=== PATIENT | female | born 1935 | race Caucasian/White ===

== ENCOUNTER 2016-11-18 08:06 | Observation (INO) ==
--- NOTE | 2016-11-18 08:11 | Emergency Department Note ---
Disposition Clinical Impression: ACS (acute coronary syndrome), Acute pain of left shoulder Disposition: Admitted As Inpatient Condition: Fair General Adult HPI - General Stated complaint: L arm pain Time Seen by Provider: 11/18/16 08:10 - Related Data Home Medications Medication Instructions Recorded Confirmed Aspirin 81 mg PO DAILY 09/26/16 11/18/16 Atorvastatin Calcium 80 mg PO DAILY 09/26/16 11/18/16 Furosemide [Lasix] 40 mg PO DAILY 09/26/16 11/18/16 GlipiZIDE [Glipizide ER] 10 mg PO BID 09/26/16 11/18/16 Lisinopril [Zestril] 20 mg PO DAILY 09/26/16 11/18/16 Metoprolol [Lopressor] 50 mg PO BID 09/26/16 11/18/16 Nitroglycerin [Nitrostat] 0.4 mg SL AD PRN 09/26/16 11/18/16 Potassium Chloride [K-Tab ER] 20 meq PO DAILY 09/26/16 11/18/16 Ticagrelor [Brilinta] 90 mg PO BID 09/26/16 11/18/16 Lactobacillus Combination No.8 1 cap PO DAILY 11/16/16 11/18/16 [Adult Probiotic] Multivitamin [Multivitamins] 1 tab PO DAILY 11/16/16 11/18/16 Metformin HCl [Glucophage] 1,000 mg PO BID 11/18/16 11/18/16 Nitroglycerin 0.2 mg TD DAILY PRN 11/18/16 11/18/16 Ranolazine [Ranexa] 500 mg PO BID 11/18/16 11/18/16 Allergies Allergy/AdvReac Type Severity Reaction Status Date / Time No Known Allergies Allergy Verified 10/12/16 09:57 Past Medical History - Past Medical History Medical history: Reports: aortic aneurysm, coronary artery disease, diabetes, hyperlipidemia, hypertension, myocardial infarction, osteoporosis, other Surgical history: Reports: angioplasty/stent Psychiatric history: Reports: no psych history BUSINESS OBJECTS ARCHITECT history: Reports: no BUSINESS OBJECTS ARCHITECT history - Social History Smoking Status: Never smoker Smokeless Tobacco Status: No Alcohol use: Reports: rarely Drug use: Reports: none Course Vital Signs Temperature 98.7 F 11/18/16 08:09 Pulse Rate 88 11/18/16 08:09 Respiratory Rate 16 11/18/16 08:09 Blood Pressure 143/84 11/18/16 08:09 O2 Sat by Pulse Oximetry 100 11/18/16 08:09 Temperature 98.0 F 11/20/16 07:10 Pulse Rate 87 11/20/16 07:10 Respiratory Rate 16 11/20/16 07:10 Blood Pressure 144/82 11/20/16 07:10 O2 Sat by Pulse Oximetry 95 11/20/16 07:10 Oxygen Delivery Oxygen Delivery Room Air Medical Decision Making - Lab Data Result diagrams: 11/19/16 01:23 11/19/16 01:23 Lab Results 11/18/16 11/18/16 11/18/16 Range/Units 08:14 08:28 08:28 WBC 8.4 (4.3-11.1) K/mcL RBC 3.44 L (3.82-4.97) M/mcL Hgb 10.8 L (11.5-15.4) g/dL Hct 34.1 L (35.3-44.9) % MCV 99.1 (83.0-100.0) fL MCH 31.4 (28.0-33.3) pg MCHC 31.7 (31.6-35.5) g/dL RDW 14.3 (11.5-14.5) % Plt Count 279 (140-400) K/mcL MPV 9.4 (9.4-12.4) fL Immature Gran % 0.2 (0-4) % Seg Neutrophils % 53.4 % Lymphocytes % 29.7 % Monocytes % 10.5 % Eosinophils % 5.8 % Basophils % 0.4 % Neutrophils # 4.5 (1.6-8.9) K/mcL Lymphocytes # 2.5 (0.6-4.6) K/mcL Monocytes # 0.9 (0.0-1.3) K/mcL Eosinophils # 0.5 (0.0-0.6) K/mcL Basophils # 0.0 (0.0-0.2) K/mcL PT (9.4-12.1) Seconds INR APTT (26.0-36.0) Seconds Sodium 140 (136-145) mEq/L Potassium 3.9 (3.5-4.5) mEq/L Chloride 106 (98-109) mEq/L Carbon Dioxide 29 (19-29) mEq/L BUN 29 H (7-20) mg/dL Creatinine 0.85 (0.57-1.11) mg/dL Est GFR ( Amer) > 60 (> 60) Est GFR (Non-Af Amer) > 60 (> 60) BUN/Creatinine Ratio 34 H (6-26) Glucose 253 H (70-99) mg/dL POC Glucose 237 H (58-89) Calculated Osmolality 304 H (280-300) Calcium 9.6 (8.6-10.8) mg/dL Troponin I (0-0.03) ng/mL 11/18/16 11/18/16 Range/Units 08:28 08:28 WBC (4.3-11.1) K/mcL RBC (3.82-4.97) M/mcL Hgb (11.5-15.4) g/dL Hct (35.3-44.9) % MCV (83.0-100.0) fL MCH (28.0-33.3) pg MCHC (31.6-35.5) g/dL RDW (11.5-14.5) % Plt Count (140-400) K/mcL MPV (9.4-12.4) fL Immature Gran % (0-4) % Seg Neutrophils % % Lymphocytes % % Monocytes % % Eosinophils % % Basophils % % Neutrophils # (1.6-8.9) K/mcL Lymphocytes # (0.6-4.6) K/mcL Monocytes # (0.0-1.3) K/mcL Eosinophils # (0.0-0.6) K/mcL Basophils # (0.0-0.2) K/mcL PT 12.6 H (9.4-12.1) Seconds INR 1.2 APTT 26.8 (26.0-36.0) Seconds Sodium (136-145) mEq/L Potassium (3.5-4.5) mEq/L Chloride (98-109) mEq/L Carbon Dioxide (19-29) mEq/L BUN (7-20) mg/dL Creatinine (0.57-1.11) mg/dL Est GFR ( Amer) (> 60) Est GFR (Non-Af Amer) (> 60) BUN/Creatinine Ratio (6-26) Glucose (70-99) mg/dL POC Glucose (58-89) Calculated Osmolality (280-300) Calcium (8.6-10.8) mg/dL Troponin I 0.19 H* (0-0.03) ng/mL Attestation Statement - Attestation Attestation: I examined this patient and my medical decision-making was reviewed with the Resident Physician. I agree with the documented findings, disposition and treatment plan as described except to the extent set forth below. [id number] time provided Patient presents in the care of her family for atraumatic left shoulder pain. She states she is unable to perform range of motion at her left shoulder due to discomfort. She is uncomfortable appearing on exam. Left shoulder not erythematous, no increased tactile warmth or evidence of acute inflammation 08:22: The patient is unable to perform range of motion of her left shoulder due to pain. I cannot identify any hemiparesis or focal weakness-she is able to make the "OK" sign with her left hand, she is able to make a fist and resist resistance with range of motion at her wrist, she is able to flex and extend at the elbow on a limited basis pain in her left shoulder. She has no leg drift. I suspect her symptoms to be secondary to an acute musculoskeletal right arm involving her left shoulder.
[2016-11-18] MEDS ORDERED: Aspirin 325 MG TABLET PO ONE (08:19)
[2016-11-18] MEDS ORDERED: *HR* Morphine 2 MG/ML SYRINGE IVP ONE (08:23)
[2016-11-18 08:34] LABS: Basophils % 0.4 %; Eosinophils # 0.5 K/mcL (0.0-0.6); Eosinophils % 5.8 %; Hematocrit 34.1 % (35.3-44.9); Hemoglobin 10.8 g/dL (11.5-15.4); Immature Granulocytes % 0.2 % (0-4); Lymphocytes # 2.5 K/mcL (0.6-4.6); Lymphocytes % 29.7 %; Mean Corpuscular HGB Conc 31.7 g/dL (31.6-35.5); Mean Corpuscular Hemoglobin 31.4 pg (28.0-33.3); Mean Corpuscular Volume 99.1 fL (83.0-100.0); Mean Platelet Volume 9.4 fL (9.4-12.4); Monocytes # 0.9 K/mcL (0.0-1.3); Monocytes % 10.5 %; Neutrophils # 4.5 K/mcL (1.6-8.9); Platelet Count 279 K/mcL (140-400); Red Blood Count 3.44 M/mcL (3.82-4.97); Red Cell Distribution Width 14.3 % (11.5-14.5); Segmented Neutrophils % 53.4 %
[2016-11-18 08:39] LABS: INR 1.2; Prothrombin Time 12.6 Seconds (9.4-12.1)
--- NOTE | 2016-11-18 08:40 | Emergency Department Note ---
Disposition Clinical Impression: ACS (acute coronary syndrome), Acute pain of left shoulder Disposition: Admitted As Inpatient Condition: Fair Referrals: NO,PCP [Primary Care Provider] - Time of Disposition: 10:03 General Adult HPI - General Chief complaint: ED Neuro Symptoms/Deficit Stated complaint: L arm pain Time Seen by Provider: 11/18/16 08:10 Source: patient, family Limitations: no limitations Nursing Notes Reviewed: Yes Vital Signs Reviewed: Yes - History of Present Illness HPI Narrative: Patient is a 81-year-old female with a past medical history of CAD, hyperlipidemia, hypertension, [place], aortic aneurysm, presents to the emergency car with complaint of left shoulder and arm pain and unable to move her left arm. The patient states her arm pain started yesterday and she was unable to move it throughout the night. She denies any other symptoms of weakness or numbness or pain anywhere else. When I asked the patient if she is able to move the arm she states that she cannot states the arm is very painful she attempts to move it and gets slight movement and then stops. She denies any fevers, chills, shortness of breath. The patient states she is having mild substernal chest pain as well. She does take an aspirin daily and brilinta. Pain Scale: 10 - Related Data Home Medications Medication Instructions Recorded Confirmed Aspirin 81 mg PO BID 09/26/16 11/16/16 Atorvastatin Calcium 80 mg PO DAILY 09/26/16 11/16/16 Furosemide [Lasix] 40 mg PO DAILY 09/26/16 11/16/16 GlipiZIDE [Glipizide ER] 10 mg PO BID 09/26/16 11/16/16 Lisinopril [Zestril] 20 mg PO DAILY 09/26/16 11/16/16 Metoprolol [Lopressor] 50 mg PO BID 09/26/16 11/16/16 Nitroglycerin [Nitrostat] 0.4 mg SL PRN PRN 09/26/16 11/16/16 Potassium Chloride [K-Tab ER] 20 meq PO DAILY 09/26/16 11/16/16 Ticagrelor [Brilinta] 90 mg PO BID 09/26/16 11/16/16 Lactobacillus Combination No.8 1 tab PO DAILY 11/16/16 11/16/16 [Adult Probiotic] Multivitamin [Multivitamins] 1 each PO DAILY 11/16/16 11/16/16 Allergies Allergy/AdvReac Type Severity Reaction Status Date / Time No Known Allergies Allergy Verified 10/12/16 09:57 All systems ED: reviewed and negative except as stated. Past Medical History - Past Medical History Medical history: Reports: aortic aneurysm, coronary artery disease, diabetes, hyperlipidemia, hypertension, myocardial infarction, osteoporosis, other Surgical history: Reports: angioplasty/stent Psychiatric history: Reports: no psych history QUALITY HEAD history: Reports: no QUALITY HEAD history - Social History Smoking Status: Never smoker Smokeless Tobacco Status: No Alcohol use: Reports: rarely Drug use: Reports: none Physical Exam Patient is a 81-year-old female who is resting in bed, she is not moving her left arm. She is in no acute distress - General Limitations: no limitations General appearance: alert, in no apparent distress - Head Head exam: atraumatic, normocephalic, normal inspection - Eye Eye exam: Present: normal appearance, PERRL, EOMI. Absent: nystagmus - ENT ENT exam: normal exam, normal oropharynx, mucous membranes moist - Neck Neck exam: Present: normal inspection, full ROM, trachea midline. Absent: tenderness - Chest Chest inspection: Present: normal inspection, symmetric chest wall rise. Absent : tenderness - Respiratory Respiratory exam: Present: normal lung sounds bilaterally. Absent: respiratory distress, wheezes - Cardiovascular Cardiovascular exam: Present: regular rate, normal rhythm, normal heart sounds - Abdominal Exam Abdominal exam: Present: soft, Non-Tender, normal bowel sounds. Absent: tenderness - Extremities Exam Extremities exam: Present: normal inspection, full ROM, normal capillary refill , other (Patient's lower extremities are swollen bilaterally this is chronic. ) . Absent: tenderness - Expanded Lower Extremity Exam Neurovascular/Tendon exam: Present: normal capillary refill, normal fine/light touch, significant pain with passive ROM of distal joint, other (The patient's left upper extremity has normal color and normal temperature when compared with the right upper extremity. Good ulnar and radial pulses 2+ bilaterally. The patient is a 5 out of 5 strength with route aide she will not flex her elbow or raise her shoulder. She states this is due to pain and weakness.). Absent: pulse deficit, motor deficit, sensory deficit, extremity cold to touch, pallor - Neurological Exam Neurological exam: Present: alert, oriented X3, CN II-XII intact. Absent: motor sensory deficit - Expanded Neurological Exam Patient oriented to: Present: person, place, time Speech: Present: fluid speech Cranial nerves: EOM function (II, III, IV, ): Normal, facial sensation (V): Normal, facial palsy (VII): Normal, gag reflex (IX): Normal, spinal accessory function (XI): Normal, tongue deviation (XII): Normal Cerebellar function: finger to nose: Normal (Limited on left, patient doesn't raise arm.), heel to lynn: Normal Motor strength - LUE: 5/5 (5/5 on route aide strength, does not move elbow or shoulder.) Motor strength - RUE: 5/5 Motor strength - LLE: 5/5 Motor strength - RLE: 5/5 Sensory exam upper extremity: light touch: Normal, temperature: Normal Sensory exam lower extremity: light touch: Normal, temperature: Normal DTR: bicep (L): 2+, bicep (R): 2+, patellar (L): 2+, patellar (R): 2+ - Psychiatric Psychiatric exam: Present: normal affect, normal mood - Skin Skin exam: Present: warm, dry, intact, normal color. Absent: rash, cyanosis, diaphoresis, erythema Course Course Narrative: I discussed with the patient and family that we will perform a head CT to rule out any acute intracranial symptoms that could be causing her left-sided shoulder pain. Since symptoms are localized to the patient shoulder and elbow I do believe this to be more musculoskeletal in nature. She still has good route aide strength in both of her hands bilaterally. I will order a left shoulder x- ray. I will order cardiac labs including troponin, CBC, CMP and a chest x-ray and EKG on the patient considering the patient's cardiac history. - Reevaluation(s) Reevaluation #1: I discussed the plan with the patient. She is in pain so we will her with morphine. We will also order the patient some sublingual nitroglycerin for her chest pain we will perform a repeat EKG as well. Time: 09:00 Reevaluation #2: I updated the patient on her CT head results. I discussed her elevated troponin level and that we should admit the patient to the hospitalist with a consult to cardiology due to her past medical history for cardiac. Time: 09:30 Reevaluation #3: I reviewed the patient's repeat EKG it looks improved from the prior EKG. She states her chest pain has improved with her nitroglycerin. The plan to admit the patient to the hospitalist and will consult cardiology. Time: 09:40 Additional Reevaluation(s): The patient with plans to admit and start her on a low-dose heparin drip. The patient denies any history of dark tarry or bright red stools. She denies any active bleeding. - Consultations Consultation #1: I spoke with Dr. Orosco about the patient he agrees to admit the patient for further evaluation of cardiac and ACS rule out. Time: 09:51 Consultation #2: I spoke with the masking machine operator Dr. Babin. He recommends starting the patient on a low-dose heparin and he will see the patient in the hospital. Time: 09:52 Vital Signs Temperature 98.7 F 11/18/16 08:09 Pulse Rate 88 11/18/16 08:09 Respiratory Rate 16 11/18/16 08:09 Blood Pressure 143/84 11/18/16 08:09 O2 Sat by Pulse Oximetry 100 11/18/16 08:09 Temperature 98.7 F 11/18/16 08:09 Pulse Rate 90 11/18/16 09:34 Respiratory Rate 16 11/18/16 09:34 Blood Pressure 156/89 11/18/16 09:34 O2 Sat by Pulse Oximetry 94 11/18/16 09:34 Oxygen Delivery Oxygen Delivery Room Air Medical Decision Making - Medical Records Medical records reviewed: Yes I reviewed the patient's medical records. - Lab Data Lab results reviewed: Yes I reviewed the patient's lab results. Result diagrams: 11/18/16 08:28 11/18/16 08:28 Lab Results 11/18/16 11/18/16 11/18/16 Range/Units 08:28 08:28 08:28 WBC 8.4 (4.3-11.1) K/mcL RBC 3.44 L (3.82-4.97) M/mcL Hgb 10.8 L (11.5-15.4) g/dL Hct 34.1 L (35.3-44.9) % MCV 99.1 (83.0-100.0) fL MCH 31.4 (28.0-33.3) pg MCHC 31.7 (31.6-35.5) g/dL RDW 14.3 (11.5-14.5) % Plt Count 279 (140-400) K/mcL MPV 9.4 (9.4-12.4) fL Immature Gran % 0.2 (0-4) % Seg Neutrophils % 53.4 % Lymphocytes % 29.7 % Monocytes % 10.5 % Eosinophils % 5.8 % Basophils % 0.4 % Neutrophils # 4.5 (1.6-8.9) K/mcL Lymphocytes # 2.5 (0.6-4.6) K/mcL Monocytes # 0.9 (0.0-1.3) K/mcL Eosinophils # 0.5 (0.0-0.6) K/mcL Basophils # 0.0 (0.0-0.2) K/mcL PT (9.4-12.1) Seconds INR APTT (26.0-36.0) Seconds Sodium 140 (136-145) mEq/L Potassium 3.9 (3.5-4.5) mEq/L Chloride 106 (98-109) mEq/L Carbon Dioxide 29 (19-29) mEq/L BUN 29 H (7-20) mg/dL Creatinine 0.85 (0.57-1.11) mg/dL Est GFR ( Amer) > 60 (> 60) Est GFR (Non-Af Amer) > 60 (> 60) BUN/Creatinine Ratio 34 H (6-26) Glucose 253 H (70-99) mg/dL Calculated Osmolality 304 H (280-300) Calcium 9.6 (8.6-10.8) mg/dL Troponin I 0.19 H* (0-0.03) ng/mL 11/18/16 Range/Units 08:28 WBC (4.3-11.1) K/mcL RBC (3.82-4.97) M/mcL Hgb (11.5-15.4) g/dL Hct (35.3-44.9) % MCV (83.0-100.0) fL MCH (28.0-33.3) pg MCHC (31.6-35.5) g/dL RDW (11.5-14.5) % Plt Count (140-400) K/mcL MPV (9.4-12.4) fL Immature Gran % (0-4) % Seg Neutrophils % % Lymphocytes % % Monocytes % % Eosinophils % % Basophils % % Neutrophils # (1.6-8.9) K/mcL Lymphocytes # (0.6-4.6) K/mcL Monocytes # (0.0-1.3) K/mcL Eosinophils # (0.0-0.6) K/mcL Basophils # (0.0-0.2) K/mcL PT 12.6 H (9.4-12.1) Seconds INR 1.2 APTT 26.8 (26.0-36.0) Seconds Sodium (136-145) mEq/L Potassium (3.5-4.5) mEq/L Chloride (98-109) mEq/L Carbon Dioxide (19-29) mEq/L BUN (7-20) mg/dL Creatinine (0.57-1.11) mg/dL Est GFR ( Amer) (> 60) Est GFR (Non-Af Amer) (> 60) BUN/Creatinine Ratio (6-26) Glucose (70-99) mg/dL Calculated Osmolality (280-300) Calcium (8.6-10.8) mg/dL Troponin I (0-0.03) ng/mL - Radiology Data Radiology results reviewed: Yes I reviewed the patient's radiology results. Chest X-Ray 11/18/16 08:17 IMPRESSION: No acute cardiopulmonary disease. D/ / 11/18/2016 08:29:44 Shravan Merida MD / neel Interpreting Provider: Shravan Merida MD Head CT 11/18/16 08:18 IMPRESSION: Sequela of chronic small vessel ischemic change. No acute intracranial abnormality seen. D/ / 11/18/2016 09:23:51 Shravan Merida MD / neel Interpreting Provider: Shravan Merida MD Shoulder X-Ray 11/18/16 08:22 IMPRESSION: Degenerative change. No acute bony abnormality D/ / Miguelito Paulson MD / Miguelito Paulson MD Interpreting Provider: Miguelito Paulson MD - EKG Data EKG #1 EKG attestation: Yes I reviewed and interpreted this EKG. EKG results narrative: Patient is sinus rhythm at 88 beats per minutes with a left axis. NV, QRS, QT intervals are within normal limits. She does have some changes in ST leads V2, V4, 5, that are more pronounced when compared to EKG from 11/12/2016 EKG #2 EKG attestation: Yes I reviewed and interpreted this EKG. EKG results narrative: I have interpreted this EKG. At 9:22. In this rhythm at a rate of 89 beats per minutes. Left axis. NV QRS and QTC intervals are within normal limits. This EKG still has the same ST abnormalities as her prior EKG however looks improved when compared to her last done at 8:14.
[2016-11-18 08:42] LABS: Activated Partial Thrombo Time 26.8 Seconds (26.0-36.0)
[2016-11-18 08:47] LABS: BUN/Creatinine Ratio 34 (6-26); Blood Urea Nitrogen 29 mg/dL (7-20); Calcium 9.6 mg/dL (8.6-10.8); Carbon Dioxide 29 mEq/L (19-29); Chloride 106 mEq/L (98-109); Glucose 253 mg/dL (70-99); Osmolality,Calculated 304 (280-300); Potassium 3.9 mEq/L (3.5-4.5); Sodium 140 mEq/L (136-145); eGFR For African Americans > 60 (> 60); eGFR For Non-African Americans > 60 (> 60)
[2016-11-18] MEDS: Nitroglycerin 0.4 MG TAB.SUBL SL PRN (09:38)
[2016-11-18] MEDS ORDERED: *HR* Heparin 5,000 UNIT/ML VIAL IVP PRN ×2 (09:56)
[2016-11-18] MEDS ORDERED: *HR* Heparin 5,000 UNIT/ML VIAL IVP ONE (09:56)
[2016-11-18] MEDS: Heparin 25,000 UNIT/500 ML D5W 25,000 UNIT/500 ML MLS IVC SCH (10:06)
[2016-11-18] MEDS ORDERED: Acetaminophen 325 MG TABLET PO PRN (10:11)
[2016-11-18] MEDS ORDERED: *HR* HYDROcodone/Acet 5/325 mg TABLET PO PRN (10:11)
[2016-11-18] MEDS ORDERED: *HR* Morphine 2 MG/ML SYRINGE IVP PRN (10:11)
[2016-11-18] MEDS ORDERED: Naloxone 0.4 MG/ML INJ IVP PRN (10:11)
[2016-11-18] MEDS ORDERED: *HR* Dextrose 50 % in Water (Syg) 50 ML SYRINGE IVP PRN (10:19)
[2016-11-18] MEDS ORDERED: D5% in Water 1,000 ML IVC PRN (10:19)
[2016-11-18] MEDS ORDERED: Dextrose Gel 15 GM PO PRN ×2 (10:19)
--- NOTE | 2016-11-18 10:27 | Internal Med History&Physical ---
Date of Encounter: 11/18/16 Time of Encounter: 09:50 Assessment and Plan (1) ACS (acute coronary syndrome) Current visit: Yes Status: Acute Patient has history of CAD with stent (in 2007 and 2016), recent stress test positive. Patient has scheduled cardiology consult recently but not see cardiology yet. - Patient has chest pain with elevated troponin, consider ACS. - We will place patient on closely continuous cardiac monitoring. - Continue aspirin, Brilinta, beta penny, and statin. - Add imdur, NTG PRN for chest pain. - Heparin drip was started. - Cardiology consult. (2) PVD (peripheral vascular disease) Current visit: Yes Status: Acute Patient has recent angiogram. There is obstruction cannot place stent. Patient said vascular surgeon plan to do bypass of her her heart problem has been fixed. (3) Abdominal aortic aneurysm Current visit: Yes Status: Acute Patient is following as outpatient with periodical examine. Qualifiers: Presence of rupture: without rupture Qualified Code(s): I71.4 - Abdominal aortic aneurysm, without rupture (4) Hypertension Current visit: Yes Status: Acute We will continue home medications. Closely monitor BP Qualifiers: Hypertension type: essential hypertension Qualified Code(s): I10 - Essential (primary) hypertension (5) Diabetes Current visit: Yes Status: Acute We will cover patient with a sliding scale. Qualifiers: Diabetes mellitus type: type 2 Diabetes mellitus complication status: without complication Diabetes mellitus parts counterman insulin use: without shelter use Qualified Code(s): E11.9 - Type 2 diabetes mellitus without complications (6) DVT prophylaxis Current visit: Yes Status: Acute Patient is on heparin drip (7) Acute pain of left shoulder Current visit: Yes Status: Acute Shoulder x-ray shows degenerative change. - Manage pain with pain medication, but avoid NSAID because patient recently has angiogram. - Physical therapy and occupational therapy. Internal Medicine - H&P: HPI Chief complaint: Left shoulder pain Admitted From: Home Plans for Post Hospital Care: Home History of present illness: Ms. Vazquez is a 81 year old female with a history of CAD S/P stent, PVD, diabetes, hypertension, abdominal aortic aneurysm present to ER for left her shoulder pain and cannot move left arm. Patient said the symptoms started yesterday, patient denies any injury. Patient denies slurred speech, facial drop, vision change, difficulty walking. Patient has no fever. She denies history of gout. In emergency room, left shoulder x-ray shows degenerative change, no fracture or dislocation. However, patient had one episode of chest pain in emergency room, last about 15 minutes. Patient has CAD and a stable angina at home. She also has recent positive stress test. EKG has been done shows V2 ST depression and I, AVL T-wave inversion. Troponin shows positive at 0.19. Patient's chest pain has resolved after sublingual nitroglycerin. Cardiology consult was called by ER doctor, recommend to start heparin drip. Past Med Surg Social Fam HX - Past Medical History Medical history: aortic aneurysm, coronary artery disease, diabetes, hyperlipidemia, hypertension, myocardial infarction, osteoporosis, other Psychiatric history: no psych history - Past Surgical History Surgical History: angioplasty/stent - Social History Smoking Status: Never smoker Smokeless Tobacco Status: No Alcohol use: rarely Drug use: none Internal Medicine - H&P: Meds Aspirin 81 mg PO BID 09/26/16 [History] Atorvastatin Calcium 80 mg PO DAILY 09/26/16 [History] Furosemide [Lasix] 40 mg PO DAILY 09/26/16 [History] GlipiZIDE [Glipizide ER] 10 mg PO BID 09/26/16 [History] Lisinopril [Zestril] 20 mg PO DAILY 09/26/16 [History] Metoprolol [Lopressor] 50 mg PO BID 09/26/16 [History] Nitroglycerin [Nitrostat] 0.4 mg SL PRN PRN 09/26/16 [History] Potassium Chloride [K-Tab ER] 20 meq PO DAILY 09/26/16 [History] Ticagrelor [Brilinta] 90 mg PO BID 09/26/16 [History] Lactobacillus Combination No.8 [Adult Probiotic] 1 tab PO DAILY 11/16/16 [ History] Multivitamin [Multivitamins] 1 each PO DAILY 11/16/16 [History] Metformin HCl [Glucophage] 1,000 mg PO BID 11/18/16 [History] Nitroglycerin 0.2 mg TD DAILY PRN 11/18/16 [History] Ranolazine [Ranexa] 500 mg PO BID 11/18/16 [History] Allergies No Known Allergies Allergy (Verified 10/12/16 09:57) All Systems PM: A 10-system review of systems was performed and is negative for pertinent findings except as documented above in the HPI. - Constitutional Vitals: Temp Pulse Resp BP Pulse Ox 98.7 F 90 16 156/89 94 11/18/16 08:09 11/18/16 09:34 11/18/16 09:34 11/18/16 09:34 11/18/16 09:34 General appearance: Present: A&O X 3, pleasant, no acute distress, answers questions appropriately - Head Head exam: Present: atraumatic, normocephalic - Eye Eye exam: Present: PERRL, conjuntiva pink, sclera anicteric Pupils: Present: PERRL - Neck Neck exam general surgery: Present: supple, trachea midline. Absent: lymphadenopathy - Respiratory Respiratory exam: Present: CTAB. Absent: accessory muscle use, rales, rhonchi, wheezes - Cardiovascular Cardiovascular exam: Present: RRR, +S1, +S2. Absent: diastolic murmur, gallop, rubs, systolic murmur - GI/Abdominal GI/Abdominal exam: Present: normal bowel sounds, soft, no peritoneal signs. Absent: distended, tenderness - Extremities Exam Extremities exam: Present: warm, radial pulses palpable and symetrical. Absent : calf tenderness, cyanotic, pedal edema Additional comments: Left shoulder and left elbow range of movement limited due to pain, no joint swelling, redness, or warmth. - Neurological Exam Neurological exam: Present: CN II-XII intact, oriented X3, no focal deficits. Absent: pronater drift, facial droop, speech deficit - Skin Skin exam: Present: dry, intact Internal Med - H&P Results - Labs CBC & Chem 7: 11/18/16 08:28 11/18/16 08:28 - EKG Data -: EKG Interpreted by Myself EKG shows normal: sinus rhythm Rate: normal (V2 ST depression, I, AVL T wave inversion)
[2016-11-18] MEDS: Lisinopril 20 MG TABLET PO SCH (12:49)
[2016-11-18] MEDS: *HR* Ticagrelor 90 MG TABLET PO SCH ×2 (12:49→21:19)
[2016-11-18] MEDS: Isosorbide MONOnitrate (24 HR) 30 MG TAB.ER.24H PO SCH (12:49)
[2016-11-18] MEDS: Insulin LISPRO 300 UNITS/3 ML VIAL SQ SCH ×3 (12:50→21:21)
--- NOTE | 2016-11-18 13:53 | Cardiology Consult Note ---
Date of Encounter: 11/18/16 Time of Encounter: 13:00 Assessment and Plan (1) Elevated troponin Current Visit: Yes Status: Acute Per cardiology: -Troponins flat and adynamic. -Troponins 0.19, 0.19. -Recent abnormal stress test. -Denies current chest pain. -ECG with new ST depressions. -On heparin drip. -Recommend LHC. Patient with recent LHC at [facility] 02/2016. Patient states she has a known blockage that would be difficult to fix. Patient states she may be agreeable to LHC here pending 's review of her previous films in am. -Will request films/images from [place]. -Will make NPO after midnight for possible LHC in am pending review of previous cath films. (2) Abnormal stress test Current Visit: Yes Status: Acute Per cardiology: -Nuclear stress test 10/03/16 with rest images with perfusion defect in apex, apical inferior, and apical septal . Patient was unable to complete stress images. -Unclear whether perfusion defects are infarct vs ischemia due to no stress images. -Of note, patient was undergoing stress test as pre-op clearance for lower extremity bypass surgery with . -Recommend [facility]. (3) CAD (coronary artery disease) Current Visit: Yes Status: Acute Per cardiology: -KNown CAD with multiple previous stents. -Pateint states last cath 02/2016 at [place]. -On asa, statin, beta penny, charity inhibitor, brilinta, imdur, and ranexa, -CUrrently on heparin drip. -Denies current chest pain. -Will obtain cath films from [place]. Qualifiers: Coronary Disease-Associated Artery/Lesion type: [place] artery [place] vs. transplanted heart: [place] heart Associated angina: with unspecified angina Qualified Code(s): I25.119 - Atherosclerotic heart disease of [place] coronary artery with unspecified angina pectoris (4) Acute pain of left shoulder Current Visit: Yes Status: Acute Per cardiology: -Patient with acute onset of left shoulder pain and weakness. -Management per primary service. Discussion w patient/family: The assessment and plan as outlined above was discussed with the patient and/or family members who expressed understanding and agreement. All questions were answered. Thank you for involving us in the care of your patient. Please call with any questions. Discussed and reviewed with . History of Present Illness Consult date: 11/18/16 Requesting physician: Lele Bernardo Consult reason: elevated troponin Chief complaint: left arm pain/weakness History of present illness: Ms. Vazquez is a 81 year old female with a relevant past medical history of CAD with stenting, UT, HTN, hyperlipidemia, AAA 3cm in 2012, PVD, carotid stenosis. Patient reports she was doing well until she was watching TV and was unable to move her left arm. Also reports left arm pain. Patient denies chest pain, however granddaugter states that she took 2 nitroglycerin yesterday. Patient denies aggravating or alleviating factors. Patient recently underwent arterial lower extremity angiogram for ulcer with recommendations for surgery. Patient underwent stress test for pre-op evaluation. Past Med Surg Social Fam HX - Past Medical History Attestation: Yes The following information was validated with the patient. Source: patient, old records reviewed, obtained from family Medical history: aortic aneurysm, coronary artery disease, diabetes, hyperlipidemia, hypertension, myocardial infarction, osteoporosis, other Psychiatric history: no psych history - Past Surgical History Surgical History: angioplasty/stent - Social History Smoking Status: Former smoker Smokeless Tobacco Status: No Alcohol use: rarely Drug use: none Medications and Allergies Aspirin 81 mg PO DAILY 09/26/16 [History] Atorvastatin Calcium 80 mg PO DAILY 09/26/16 [History] Furosemide [Lasix] 40 mg PO DAILY 09/26/16 [History] GlipiZIDE [Glipizide ER] 10 mg PO BID 09/26/16 [History] Lisinopril [Zestril] 20 mg PO DAILY 09/26/16 [History] Metoprolol [Lopressor] 50 mg PO BID 09/26/16 [History] Nitroglycerin [Nitrostat] 0.4 mg SL AD PRN 09/26/16 [History] Potassium Chloride [K-Tab ER] 20 meq PO DAILY 09/26/16 [History] Ticagrelor [Brilinta] 90 mg PO BID 09/26/16 [History] Lactobacillus Combination No.8 [Adult Probiotic] 1 cap PO DAILY 11/16/16 [ History] Multivitamin [Multivitamins] 1 tab PO DAILY 11/16/16 [History] Metformin HCl [Glucophage] 1,000 mg PO BID 11/18/16 [History] Nitroglycerin 0.2 mg TD DAILY PRN 11/18/16 [History] Ranolazine [Ranexa] 500 mg PO BID 11/18/16 [History] Allergies No Known Allergies Allergy (Verified 10/12/16 09:57) All Systems Review: A 10-system review of systems was performed and is negative for pertinent findings except as documented above in the HPI. - Cardiovascular Cardiovascular: as per HPI - Musculoskeletal Musculoskeletal: other (Left arm pain and weakness) Physical Examination Vital Signs, Last 4 Hours Temp Pulse Resp BP Pulse Ox 11/18/16 10:46 97.6 F 80 17 143/97 94 11/18/16 10:21 18 123/80 General: Conversant, No Apparent Distress HEENT: Atraumatic, Normocephaly, Mucus Membranes Moist Neck: No JVD, Normal carotid pulses Cardiac: Reg Rate and Rhythm, Normal S1 and S2, No Murmur Lungs: Normal Breath Sounds, No Wheeze, Rales, Rhonchi Neuro: Alert and responsive, No focal deficits noted Abdomen: Soft, Non-Tender Skin: No rashes noted on visualized skin Musculoskeletal: No Chest Wall Tenderness Extremities: No Clubbing, No Cyanosis, Other (Decreased pulses bilaterally. 2+ bilateral lower extremity pitting pedal edema. ) Results 11/18/16 08:28 11/18/16 08:28 Lab Results Impressions Chest X-Ray 11/18/16 08:17 IMPRESSION: No acute cardiopulmonary disease. D/ / 11/18/2016 08:29:44 Shravan Merida MD / neel Interpreting Provider: Shravan Merida MD Head CT 11/18/16 08:18 IMPRESSION: Sequela of chronic small vessel ischemic change. No acute intracranial abnormality seen. D/ / 11/18/2016 09:23:51 Shravan Merida MD / neel Interpreting Provider: Shravan Merida MD Shoulder X-Ray 11/18/16 08:22 IMPRESSION: Degenerative change. No acute bony abnormality D/ / Miguelito Paulson MD / Miguelito Paulson MD Interpreting Provider: Miguelito Paulson MD Active Medications Acetaminophen (Tylenol) 650 mg PO Q6HR PRN PRN Reason: Mild Pain (1-3) Stop: 05/20/17 10:12 Hydrocodone Bitart/Acetaminophen ([place] 5-325 Mg) 1 tab PO Q4HR PRN PRN Reason: Moderate Pain (4-6) Stop: 05/20/17 10:12 Aspirin (Aspirin) 81 mg PO DAILY DENG Stop: 05/21/17 09:01 Atorvastatin Calcium (Lipitor) 80 mg PO HS DENG Stop: 05/20/17 21:01 Dextrose/Water (Dextrose 50% (Syg)) 25 ml IVP AD PRN PRN Reason: Hypoglycemia Stop: 05/20/17 10:20 Furosemide (Lasix) 40 mg PO DAILY DENG Stop: 05/21/17 09:01 Glucagon (Glucagen) 1 mg IM ONCE PRN PRN Reason: Hypoglycemia Stop: 05/20/17 10:20 Glucose (Gluctose) 15 gm PO ONCE PRN PRN Reason: Hypoglycemia Stop: 05/20/17 10:20 Glucose (Gluctose) 30 gm PO ONCE PRN PRN Reason: Hypoglycemia Stop: 05/20/17 10:20 Heparin Sodium (Porcine) (Heparin) 4,000 unit IVP Q6HR PRN PRN Reason: SEE COMMENTS Stop: 05/20/17 09:57 Heparin Sodium (Porcine) (Heparin) 2,000 unit IVP Q6H PRN PRN Reason: SEE COMMENTS Stop: 05/20/17 09:57 Heparin Sodium/Dextrose (Heparin 25,000 Unit/500 Ml D5w) 25,000 unit in 500 mls @ 18.507 mls/hr IVC .Q24H DENG; 12 UNIT/KG/HR PRN Reason: Protocol Stop: 05/20/17 10:01 Last Admin: 11/18/16 10:06 Dose: 12 unit/kg/hr, 18.507 mls/hr Dextrose (Dextrose 5%) 1,000 mls @ 100 mls/hr IVC .Q10H PRN PRN Reason: HYPOGLYCEMIA Stop: 05/20/17 10:20 Insulin Human Lispro (Humalog) 0 units SQ HS [facility] PRN Reason: Protocol Stop: 05/20/17 21:01 Insulin Human Lispro (Humalog) 0 units SQ TIDAC [facility] PRN Reason: Protocol Stop: 05/20/17 11:31 Last Admin: 11/18/16 12:50 Dose: 4 units Isosorbide Mononitrate (Imdur) 30 mg PO DAILY [facility] Stop: 05/20/17 10:31 Last Admin: 11/18/16 12:49 Dose: 30 mg Lactobacillus Acidophilus/Rhamnosus (Culturelle) 1 each PO DAILY [facility] Stop: 05/21/17 09:01 Lidocaine HCl (Lidoderm 5% Patch) 1 each TP DAILY [facility] Stop: 05/20/17 10:31 Last Admin: 11/18/16 12:48 Dose: 1 each Lisinopril (Zestril) 20 mg PO DAILY [facility] PRN Reason: Protocol Stop: 05/20/17 10:31 Last Admin: 11/18/16 12:49 Dose: 20 mg Metoprolol Tartrate (Lopressor) 50 mg PO BID [facility] Stop: 05/20/17 10:31 Last Admin: 11/18/16 12:49 Dose: 50 mg Morphine Sulfate (Morphine Sulfate) 2 mg IVP Q6H PRN PRN Reason: Severe Pain (7-10) Stop: 05/20/17 10:12 Naloxone HCl (Narcan) 0.4 mg IVP Q2MIN PRN PRN Reason: Opioid Reversal Stop: 05/20/17 10:12 Nitroglycerin (Nitroglycerin) 0.4 mg SL Q5MIN PRN PRN Reason: Chest Pain Stop: 05/20/17 09:08 Last Admin: 11/18/16 09:38 Dose: 0.4 mg Potassium Chloride (Potassium Chloride) 20 meq PO DAILY [facility] Stop: 05/21/17 09:01 Ranolazine (Ranexa) 500 mg PO BID [facility] Stop: 05/20/17 21:01 Ticagrelor (Brilinta) 90 mg PO BID [facility] Stop: 05/20/17 10:31 Last Admin: 11/18/16 12:49 Dose: 90 mg Laboratory Tests 11/18/16 11/18/16 11/18/16 08:28 08:28 08:28 Hgb 10.8 L Potassium 3.9 Creatinine 0.85 Troponin I 0.19 H* 11/18/16 12:19 Hgb Potassium Creatinine Troponin I 0.19 H* - Imaging and Cardiology Chest Xray: report reviewed Stress Test: report reviewed Echo: report reviewed - EKG Interpretation EKG results cardiology: personally reviewed (ECG with Sinus rhythm, HR [address] depression in leads I, II, aVl, V2, V4, V5.), other (Telemetry reviewed with average HR 85, sinus rhythm. PVCs and PACs noted.) Consult Discharge Plan - Plan Referrals: NO,PCP [Primary Care Provider] -
[2016-11-18] MEDS: Ranolazine 500 MG TAB.ER.12H PO SCH (21:19)
[2016-11-19 01:32] LABS: Basophils % 0.5 %; Eosinophils # 0.5 K/mcL (0.0-0.6); Eosinophils % 6.2 %; Hematocrit 29.7 % (35.3-44.9); Immature Granulocytes % 0.4 % (0-4); Lymphocytes # 2.5 K/mcL (0.6-4.6); Lymphocytes % 32.4 %; Mean Platelet Volume 9.4 fL (9.4-12.4); Monocytes # 0.7 K/mcL (0.0-1.3); Platelet Count 240 K/mcL (140-400); Red Blood Count 2.97 M/mcL (3.82-4.97); Red Cell Distribution Width 14.3 % (11.5-14.5); Segmented Neutrophils % 51.5 %
[2016-11-19 01:34] LABS: Hemoglobin 9.2 g/dL (11.5-15.4)
[2016-11-19 01:46] LABS: BUN/Creatinine Ratio 29 (6-26); Blood Urea Nitrogen 26 mg/dL (7-20); Calcium 8.8 mg/dL (8.6-10.8); Carbon Dioxide 24 mEq/L (19-29); Chloride 106 mEq/L (98-109); Glucose 253 mg/dL (70-99); Magnesium 1.4 mg/dL (1.6-2.6); Osmolality,Calculated 301 (280-300); Potassium 3.8 mEq/L (3.5-4.5); Sodium 139 mEq/L (136-145); eGFR For African Americans > 60 (> 60); eGFR For Non-African Americans 60 (> 60)
[2016-11-19] MEDS: Aspirin 81 MG TAB.CHEW PO SCH (08:53)
[2016-11-19] MEDS: Ranolazine 500 MG TAB.ER.12H PO SCH ×2 (08:53→20:46)
[2016-11-19] MEDS: Lisinopril 20 MG TABLET PO SCH (08:53)
[2016-11-19] MEDS: Lactobacillus 1 EACH CAP.SPRINK PO SCH (08:53)
[2016-11-19] MEDS: *HR* Ticagrelor 90 MG TABLET PO SCH ×2 (08:53→20:46)
[2016-11-19] MEDS: Furosemide 40 MG TABLET PO SCH (08:53)
[2016-11-19] MEDS: Isosorbide MONOnitrate (24 HR) 30 MG TAB.ER.24H PO SCH (08:54)
[2016-11-19] MEDS: Insulin LISPRO 300 UNITS/3 ML VIAL SQ SCH ×4 (08:58→20:46)
--- NOTE | 2016-11-19 10:28 | Internal Med Progress Note ---
<Tomasz Jordan - Last Filed: 11/19/16 15:01> Date of Encounter: 11/19/16 Time of Encounter: 10:27 - Assessment and plan (1) ACS (acute coronary syndrome) Current Visit: Yes Status: Acute Assessment and plan: - NSTEMI. Troponins 0.19 -> 0.19 -> 0.46 - EKG in ED showed ST depression in V2 and T wave inversions in I, AVL - Cardiology consulted, will likely do [facility] this tomorrow, awaiting records from [place] [facility] - Continue ASA, brilenta, BB, statin, NTG, imdur, Heparin ggt. (2) Acute pain of left shoulder Current Visit: Yes Status: Acute Assessment and plan: - Degenerative changes seen on shoulder Xray - PT/OT consult - Will control pain with [place] 5 (3) Hypertension Current Visit: Yes Status: Acute Assessment and plan: - Well controlled, 117/65 - Continue home meds Qualifiers: Hypertension type: essential hypertension Qualified Code(s): I10 - Essential (primary) hypertension (4) Diabetes Current Visit: Yes Status: Acute Assessment and plan: - BS 253 on admission. - Will start SSI for better glycemic control during hospital stay Qualifiers: Diabetes mellitus type: type 2 Diabetes mellitus complication status: without complication Diabetes mellitus buttermaker continuous churn insulin use: without fdc use Qualified Code(s): E11.9 - Type 2 diabetes mellitus without complications (5) CAD (coronary artery disease) Current Visit: Yes Status: Acute Assessment and plan: - Continue statin - ACS as above. Qualifiers: Coronary Disease-Associated Artery/Lesion type: [place] artery [place] vs. transplanted heart: [place] heart Associated angina: with unspecified angina Qualified Code(s): I25.119 - Atherosclerotic heart disease of [place] coronary artery with unspecified angina pectoris (6) Hypomagnesemia Current Visit: Yes Status: Acute Assessment and plan: Mag in Ed was 1.4 - Will replenish - Time Spent With Patient 25 - 35 minutes - Subjective Interval history: Patient was seen and examined at bedside this morning. She reports that her left shoulder pain is the same as admission. She denies any symptoms of CP, SOB , n/v, abdominal pain, numbness, tingling. She has not yet seen cardiology this morning, however states that she was told she would undergo a left heart catheterization this afternoon if we receive records from [facility]. - Constitutional Vitals: Temp Pulse Resp BP Pulse Ox 98.1 F 61 16 117/65 93 11/19/16 07:11 11/19/16 07:11 11/19/16 07:11 11/19/16 07:11 11/19/16 07:11 General appearance: Present: A&O X 3, pleasant, no acute distress, answers questions appropriately Exam: Gen.: Vitals noted. No acute distress. AAOx3 HEENT: PERRL/EOMI, oropharynx clear, Normocephalic, atraumatic Neck: Supple. No adenopathy. Cardiac: RRR, no murmur, +S1/S2 Pulmonary: CTA bilaterally, no wheezes, rales or rhonchi, equal chest expansion Abdomen: soft, nontender, BS noted, no guarding Back: Nontender throughout. MSK: Limited ROM in L shoulder secondary to pain. Strength intact. no joint swelling noted Extremities: no BLE edema, nontender calf, no cyanosis or clubbing Neuro: A&Ox3, no focal deficits, no numbness, tingling. Psych: Appropriate mood and behavior Internal Medicine: Result - Labs CBC & Chem 7: 11/19/16 01:23 11/19/16 01:23 Labs: Short CBC 11/19/16 Range/Units 01:23 WBC 7.8 (4.3-11.1) K/mcL Hgb 9.2 L D (11.5-15.4) g/dL Hct 29.7 L (35.3-44.9) % Plt Count 240 (140-400) K/mcL Neutrophils # 4.0 (1.6-8.9) K/mcL BMP 11/19/16 01:23 Sodium 139 Potassium 3.8 Chloride 106 Carbon Dioxide 24 BUN 26 H Creatinine 0.90 Glucose 253 H Calcium 8.8 Cardiac Enzymes 11/18/16 11/18/16 Range/Units 12:19 18:08 Troponin I 0.19 H* 0.46 H* (0-0.03) ng/mL - ABG Interpretation ABG results: PT/INR, D-dimer PT 12.6 Seconds (9.4-12.1) H 11/18/16 08:28 Consult Discharge Plan - Plan Referrals: Rashard Umana CNP [Primary Care Provider] - 11/22/16 2:00 pm (please follow up as schedule...) <Yang Harvey H - Last Filed: 11/19/16 15:14> Date of Encounter: 11/19/16 - Constitutional Vitals: Temp Pulse Resp BP Pulse Ox 97.5 F L 62 18 100/59 96 11/19/16 10:58 11/19/16 10:58 11/19/16 10:58 11/19/16 10:58 11/19/16 10:58 Internal Medicine: Result - Labs CBC & Chem 7: 11/19/16 01:23 11/19/16 01:23 Labs: Short CBC 11/19/16 Range/Units 01:23 WBC 7.8 (4.3-11.1) K/mcL Hgb 9.2 L D (11.5-15.4) g/dL Hct 29.7 L (35.3-44.9) % Plt Count 240 (140-400) K/mcL Neutrophils # 4.0 (1.6-8.9) K/mcL BMP 11/19/16 01:23 Sodium 139 Potassium 3.8 Chloride 106 Carbon Dioxide 24 BUN 26 H Creatinine 0.90 Glucose 253 H Calcium 8.8 Cardiac Enzymes 11/18/16 Range/Units 18:08 Troponin I 0.46 H* (0-0.03) ng/mL - ABG Interpretation ABG results: PT/INR, D-dimer PT 12.6 Seconds (9.4-12.1) H 11/18/16 08:28 - Attending Attestation No STEMI, continue heparin drip Cardiac catheterization in the morning I examined this patient and my medical decision-making was reviewed with the Resident Physician. I agree with the documented findings, disposition and treatment plan as described except to the extent set forth below.
[2016-11-19] MEDS ORDERED: Magnesium Sulfate 2 GM in D5% in Water 100 ML IVPB ONE (10:40)
[2016-11-19] MEDS: Heparin 25,000 UNIT/500 ML D5W 25,000 UNIT/500 ML MLS IVC SCH (11:08)
--- NOTE | 2016-11-19 12:18 | Cardiology Progress Note ---
Date of Encounter: 11/19/16 Time of Encounter: 08:30 Assessment and Plan (1) Elevated troponin Current Visit: Yes Status: Acute Per cardiology: -Troponins 0.19, 0.19, 0.46. -Recent abnormal stress test. -Denies current chest pain. -ECG with new ST depressions. -On heparin drip. -Of note, hemoglobin tofay 9.2, down from 10.8 yesterday-management per primary service. -Mg 1.4 today-replaced per primary service. -Recommend [facility]. Patient with recent LHC at [facility] 02/2016. Patient states she has a known blockage that would be difficult to fix. Patient states she may be agreeable to [facility] here pending 's review of her previous films in am. -Films have been requested. I will call [facility] cath lab radiological technologist to determine when films would be available for review. -Will keep patient NPO for now, until we can determine when films would be available. Patient agreeable for NPO for now. Will give patient updates when available. (2) Abnormal stress test Current Visit: Yes Status: Acute Per cardiology: -Nuclear stress test 10/03/16 with rest images with perfusion defect in apex, apical inferior, and apical septal . Patient was unable to complete stress images. -Unclear whether perfusion defects are infarct vs ischemia due to no stress images. -Of note, patient was undergoing stress test as pre-op clearance for lower extremity bypass surgery with . -Recommend [facility]. (3) CAD (coronary artery disease) Current Visit: Yes Status: Acute Per cardiology: -KNown CAD with multiple previous stents. -Pateint states last cath 02/2016 at [place]. -On asa, statin, beta penny, charity inhibitor, brilinta, imdur, and ranexa, -CUrrently on heparin drip. -Denies current chest pain. -Will obtain cath films from [place]. Qualifiers: Coronary Disease-Associated Artery/Lesion type: [place] artery [place] vs. transplanted heart: [place] heart Associated angina: with unspecified angina Qualified Code(s): I25.119 - Atherosclerotic heart disease of [place] coronary artery with unspecified angina pectoris (4) Acute pain of left shoulder Current Visit: Yes Status: Acute Per cardiology: -Patient with acute onset of left shoulder pain and weakness. -Management per primary service. Discussion w patient/family: The assessment and plan as outlined above was discussed with the patient and/or family members who expressed understanding and agreement. All questions were answered. Thank you for involving us in the care of your patient. Please call with any questions. Discussed and reviewed with . Subjective Principal diagnosis: left arm pain Interval history: Patient states she feels ok this morning. Patient states left arm pain has improved from yesterday. Denies chest pain. Objective Vital Signs, Last 4 Hours Temp Pulse Resp BP Pulse Ox 11/19/16 10:58 97.5 F L 62 18 100/59 96 General: Conversant, No Apparent Distress HEENT: Atraumatic, Normocephaly, Mucus Membranes Moist Neck: No JVD, Normal carotid pulses Cardiac: Reg Rate and Rhythm, Normal S1 and S2, No Murmur Lungs: Normal Breath Sounds, No Wheeze, Rales, Rhonchi Neuro: Alert and responsive, No focal deficits noted Abdomen: Soft, Non-Tender Skin: No rashes noted on visualized skin Musculoskeletal: No Chest Wall Tenderness Extremities: No Clubbing, No Cyanosis, Normal Pulses, Other (2+ bilateral lower extremity pitting edema. ) Results 11/19/16 01:23 11/19/16 01:23 Lab Results Active Medications Acetaminophen (Tylenol) 650 mg PO Q6HR PRN PRN Reason: Mild Pain (1-3) Stop: 05/20/17 10:12 Hydrocodone Bitart/Acetaminophen ([place] 5-325 Mg) 1 tab PO Q4HR PRN PRN Reason: Moderate Pain (4-6) Stop: 05/20/17 10:12 Aspirin (Aspirin) 81 mg PO DAILY [facility] Stop: 05/21/17 09:01 Last Admin: 11/19/16 08:53 Dose: 81 mg Atorvastatin Calcium (Lipitor) 80 mg PO HS [facility] Stop: 05/20/17 21:01 Last Admin: 11/18/16 21:19 Dose: 80 mg Dextrose/Water (Dextrose 50% (Syg)) 25 ml IVP AD PRN PRN Reason: Hypoglycemia Stop: 05/20/17 10:20 Furosemide (Lasix) 40 mg PO DAILY [facility] Stop: 05/21/17 09:01 Last Admin: 11/19/16 08:53 Dose: 40 mg Glucagon (Glucagen) 1 mg IM ONCE PRN PRN Reason: Hypoglycemia Stop: 05/20/17 10:20 Glucose (Gluctose) 15 gm PO ONCE PRN PRN Reason: Hypoglycemia Stop: 05/20/17 10:20 Glucose (Gluctose) 30 gm PO ONCE PRN PRN Reason: Hypoglycemia Stop: 05/20/17 10:20 Heparin Sodium (Porcine) (Heparin) 4,000 unit IVP Q6HR PRN PRN Reason: SEE COMMENTS Stop: 05/20/17 09:57 Heparin Sodium (Porcine) (Heparin) 2,000 unit IVP Q6H PRN PRN Reason: SEE COMMENTS Stop: 05/20/17 09:57 Last Admin: 11/18/16 18:57 Dose: 2,000 unit Heparin Sodium/Dextrose (Heparin 25,000 Unit/500 Ml D5w) 25,000 unit in 500 mls @ 18.507 mls/hr IVC .Q24H [facility]; 12 UNIT/KG/HR PRN Reason: Protocol Stop: 05/20/17 10:01 Last Admin: 11/19/16 11:08 Dose: 14.26 unit/kg/hr, 21.992 mls/hr Dextrose (Dextrose 5%) 1,000 mls @ 100 mls/hr IVC .Q10H PRN PRN Reason: HYPOGLYCEMIA Stop: 05/20/17 10:20 Insulin Human Lispro (Humalog) 0 units SQ HS [facility] PRN Reason: Protocol Stop: 05/20/17 21:01 Last Admin: 11/18/16 21:21 Dose: 2 units Insulin Human Lispro (Humalog) 0 units SQ TIDAC [facility] PRN Reason: Protocol Stop: 05/20/17 11:31 Last Admin: 11/19/16 11:26 Dose: Not Given Isosorbide Mononitrate (Imdur) 30 mg PO DAILY [facility] Stop: 05/20/17 10:31 Last Admin: 11/19/16 08:54 Dose: 30 mg Lactobacillus Acidophilus/Rhamnosus (Culturelle) 1 each PO DAILY [facility] Stop: 05/21/17 09:01 Last Admin: 11/19/16 08:53 Dose: 1 each Lidocaine HCl (Lidoderm 5% Patch) 1 each TP DAILY [facility] Stop: 05/20/17 10:31 Last Admin: 11/19/16 08:54 Dose: 1 each Lisinopril (Zestril) 20 mg PO DAILY [facility] PRN Reason: Protocol Stop: 05/20/17 10:31 Last Admin: 11/19/16 08:53 Dose: 20 mg Metoprolol Tartrate (Lopressor) 50 mg PO BID [facility] Stop: 05/20/17 10:31 Last Admin: 11/19/16 08:53 Dose: 50 mg Morphine Sulfate (Morphine Sulfate) 2 mg IVP Q6H PRN PRN Reason: Severe Pain (7-10) Stop: 05/20/17 10:12 Last Admin: 11/19/16 03:32 Dose: 2 mg Naloxone HCl (Narcan) 0.4 mg IVP Q2MIN PRN PRN Reason: Opioid Reversal Stop: 05/20/17 10:12 Nitroglycerin (Nitroglycerin) 0.4 mg SL Q5MIN PRN PRN Reason: Chest Pain Stop: 05/20/17 09:08 Last Admin: 11/18/16 09:38 Dose: 0.4 mg Potassium Chloride (Potassium Chloride) 20 meq PO DAILY [facility] Stop: 05/21/17 09:01 Last Admin: 11/19/16 08:53 Dose: 20 meq Ranolazine (Ranexa) 500 mg PO BID [facility] Stop: 05/20/17 21:01 Last Admin: 11/19/16 08:53 Dose: 500 mg Ticagrelor (Brilinta) 90 mg PO BID [facility] Stop: 05/20/17 10:31 Last Admin: 11/19/16 08:53 Dose: 90 mg Laboratory Tests 11/18/16 11/18/16 11/18/16 08:28 12:19 18:08 Hgb Creatinine Magnesium Troponin I 0.19 H* 0.19 H* 0.46 H* 11/19/16 11/19/16 01:23 01:23 Hgb 9.2 L D Creatinine 0.90 Magnesium 1.4 L Troponin I - Imaging and Cardiology Chest Xray: report reviewed Stress Test: report reviewed Cardiac cath: report reviewed - EKG Interpretation EKG results cardiology: other (Telemetry reviewed with average HR 81, sinus rhythm. PVCs and PACs noted.) Consult Discharge Plan - Plan Referrals: Rashard Umana CNP [Primary Care Provider] - 11/22/16 2:00 pm (please follow up as schedule...)
--- NOTE | 2016-11-19 14:32 | Electrocardiograph Report ---
[place] [address] Test Date: 2016-11-18 Pat Name: Zandra Vazquez Department: 103 Room: 2A Gender: F Youth Leader: : 1935 Requested By: Jeanmarie Johnson Order Number: [id number] Reading MD: Bunny Villanueva MD Measurements Intervals [place] Rate: 88 P: 27 [place]: 120 QRS: -17 QRSD: 113 T: 135 QT: 355 QTc: 401 Interpretive Statements SINUS RHYTHM WITH SINUS ARRHYTHMIA LEFT VENTRICULAR HYPERTROPHY AND ST-T CHANGE Electronically Signed On 11-19-2016 14:30:50 EDT by Bunny Villanueva MD
--- NOTE | 2016-11-19 14:32 | Electrocardiograph Report ---
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
--- NOTE | 2016-11-19 16:27 | Electrocardiograph Report ---
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
[2016-11-20 08:00] LABS: Hematocrit 30.3 % (35.3-44.9); Mean Corpuscular Hemoglobin 32.5 pg (28.0-33.3); Mean Corpuscular Volume 98.4 fL (83.0-100.0); Mean Platelet Volume 10.1 fL (9.4-12.4); Platelet Count 266 K/mcL (140-400); Red Blood Count 3.08 M/mcL (3.82-4.97); Red Cell Distribution Width 14.4 % (11.5-14.5)
[2016-11-20] MEDS: Insulin LISPRO 300 UNITS/3 ML VIAL SQ SCH ×3 (08:01→17:08)
[2016-11-20] MEDS: Lactobacillus 1 EACH CAP.SPRINK PO SCH (08:49)
[2016-11-20] MEDS: Furosemide 40 MG TABLET PO SCH (08:49)
[2016-11-20] MEDS: Lisinopril 20 MG TABLET PO SCH (08:49)
[2016-11-20] MEDS: Aspirin 81 MG TAB.CHEW PO SCH (08:50)
[2016-11-20] MEDS: Isosorbide MONOnitrate (24 HR) 30 MG TAB.ER.24H PO SCH (08:50)
[2016-11-20] MEDS: Ranolazine 500 MG TAB.ER.12H PO SCH (08:50)
[2016-11-20] MEDS: *HR* Ticagrelor 90 MG TABLET PO SCH (08:50)
[2016-11-20] MEDS: Nitroglycerin 0.4 MG TAB.SUBL SL PRN (08:51)
--- NOTE | 2016-11-20 10:53 | Internal Med Progress Note ---
<Tomasz Jordan - Last Filed: 11/20/16 11:44> Date of Encounter: 11/20/16 Time of Encounter: 10:51 - Assessment and plan (1) ACS (acute coronary syndrome) Current Visit: Yes Status: Acute Assessment and plan: - NSTEMI. Troponins 0.19 -> 0.19 -> 0.46 - EKG in ED showed ST depression in V2 and T wave inversions in I, AVL - Cardiology consulted. Records from [facility] received, cardiology plans to perform left heart catheterization this afternoon - Continue ASA, brilenta, BB, statin, NTG, imdur, Heparin ggt per cardiology (2) Acute pain of left shoulder Current Visit: Yes Status: Acute Assessment and plan: - Degenerative changes seen on shoulder Xray - PT/OT consult, who will wait at this time until after left heart catheterization - Will control pain with lidocaine patch, patient is currently refusing oral pain medications - May require MRI prior to discharge for further evaluation, however well at this time we will wait until after left heart catheterization (3) Hypertension Current Visit: Yes Status: Acute Assessment and plan: - Well controlled, 137/86 - Continue home meds Qualifiers: Hypertension type: essential hypertension Qualified Code(s): I10 - Essential (primary) hypertension (4) Diabetes Current Visit: Yes Status: Acute Assessment and plan: - BS 253 on admission. 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 Qualifiers: Coronary Disease-Associated Artery/Lesion type: [place] artery [place] vs. transplanted heart: [place] heart Associated angina: with unspecified angina Qualified Code(s): I25.119 - Atherosclerotic heart disease of [place] coronary artery with unspecified angina pectoris (6) Hypomagnesemia Current Visit: Yes Status: Acute Assessment and plan: Mag in Ed was 1.4 - Will replenish further if needed after receiving lab results - Subjective Interval history: Patient was seen and examined at bedside this morning. She reports that her left shoulder pain is the same as admission. She did have one episode of chest pain this morning which was relieved by nitroglycerin. Repeat EKG revealed no new changes. She states she is otherwise asymptomatic and has no fevers, chills , chest pain, shortness of breath, nausea, vomiting. - Constitutional Vitals: Temp Pulse Resp BP Pulse Ox 98.0 F 87 16 144/82 95 11/20/16 07:10 11/20/16 07:10 11/20/16 07:10 11/20/16 07:10 11/20/16 07:10 General appearance: Present: A&O X 3, pleasant, no acute distress, answers questions appropriately Exam: Gen.: Vitals noted. No acute distress. AAOx3 HEENT: PERRL/EOMI, oropharynx clear, Normocephalic, atraumatic Neck: Supple. No adenopathy. Cardiac: RRR, no murmur, +S1/S2 Pulmonary: CTA bilaterally, no wheezes, rales or rhonchi, equal chest expansion Abdomen: soft, nontender, BS noted, no guarding Back: Nontender throughout. MSK: Left shoulder tenderness to palpation, limited range of motion secondary to pain in extension, abduction, and supination. no joint swelling noted Extremities: Right medial malleolus ulcer with purulence. No erythema, warmth noted. no BLE edema, nontender calf, no cyanosis or clubbing Neuro: A&Ox3, moves all extremities, no focal deficits Psych: Appropriate mood and behavior Internal Medicine: Result - Labs CBC & Chem 7: 11/20/16 06:55 11/19/16 01:23 Labs: Short CBC 11/20/16 Range/Units 06:55 WBC 9.2 (4.3-11.1) K/mcL Hgb 10.0 L (11.5-15.4) g/dL Hct 30.3 L (35.3-44.9) % Plt Count 266 (140-400) K/mcL - ABG Interpretation ABG results: PT/INR, D-dimer PT 12.6 Seconds (9.4-12.1) H 11/18/16 08:28 Consult Discharge Plan - Plan Referrals: Rashard Umana CNP [Primary Care Provider] - 11/22/16 2:00 pm (please follow up as schedule...) <Son Swanson - Last Filed: 11/20/16 16:44> Date of Encounter: 11/20/16 - Constitutional Vitals: Temp Pulse Resp BP Pulse Ox 98.2 F 82 16 94/61 98 11/20/16 16:17 11/20/16 16:17 11/20/16 16:17 11/20/16 16:17 11/20/16 16:17 Internal Medicine: Result - Labs CBC & Chem 7: 11/20/16 06:55 11/20/16 06:55 Labs: Short CBC 11/20/16 Range/Units 06:55 WBC 9.2 (4.3-11.1) K/mcL Hgb 10.0 L (11.5-15.4) g/dL Hct 30.3 L (35.3-44.9) % Plt Count 266 (140-400) K/mcL BMP 11/20/16 06:55 Sodium 139 Potassium 3.6 Chloride 104 Carbon Dioxide 26 BUN 20 Creatinine 0.88 Glucose 207 H Calcium 9.0 - ABG Interpretation ABG results: PT/INR, D-dimer PT 12.6 Seconds (9.4-12.1) H 11/18/16 08:28 - Attending Attestation Please see discharge summary of this date.
[2016-11-20 12:35] LABS: BUN/Creatinine Ratio 23 (6-26); Blood Urea Nitrogen 20 mg/dL (7-20); Carbon Dioxide 26 mEq/L (19-29); Chloride 104 mEq/L (98-109); Glucose 207 mg/dL (70-99); Magnesium 1.4 mg/dL (1.6-2.6); Osmolality,Calculated 297 (280-300); Potassium 3.6 mEq/L (3.5-4.5); Sodium 139 mEq/L (136-145); eGFR For African Americans > 60 (> 60); eGFR For Non-African Americans > 60 (> 60)
[2016-11-20] MEDS: Heparin 25,000 UNIT/500 ML D5W 25,000 UNIT/500 ML MLS IVC SCH (12:56)
--- NOTE | 2016-11-20 14:00 | Cardiology Progress Note ---
Date of Encounter: 11/20/16 Time of Encounter: 13:00 Assessment and Plan (1) Elevated troponin Current Visit: Yes Status: Acute Per cardiology: -Troponins 0.19, 0.19, 0.46. -Recent abnormal stress test. -Denies current chest pain. -ECG with new ST depressions. -On heparin drip. -Mg 1.4 today-replaced per primary service. -Recommend LHC. Patient with recent LHC at [facility] 02/2016, cath films reviewed with Dr.Jennifer Pate. 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 would not recommend LHC here at [place]. -I discussed at length with patient and granddaughter. Patient wishes to be transferred to [place] for possible LHC. -I called and discussed with patient's son, Antonio. Antonio agreeable for transfer. -Discussed with , hospitalist. (2) Abnormal stress test Current Visit: Yes Status: Acute Per cardiology: -Nuclear stress test 10/03/16 with rest images with perfusion defect in apex, apical inferior, and apical septal . Patient was unable to complete stress images. -Unclear whether perfusion defects are infarct vs ischemia due to no stress images. -Of note, patient was undergoing stress test as pre-op clearance for lower extremity bypass surgery with . -Recommend LHC. (3) CAD (coronary artery disease) Current Visit: Yes Status: Acute Per cardiology: -KNown CAD with multiple previous stents. -Pateint states last cath 02/2016 at [facility]. -On asa, statin, beta penny, charity inhibitor, brilinta, imdur, and ranexa, -CUrrently on heparin drip. -Denies current chest pain. -Patient will be transferred to [place]. Qualifiers: Coronary Disease-Associated Artery/Lesion type: [place] artery [place] vs. transplanted heart: [place] heart Associated angina: with unspecified angina Qualified Code(s): I25.119 - Atherosclerotic heart disease of [place] coronary artery with unspecified angina pectoris (4) Acute pain of left shoulder Current Visit: Yes Status: Acute Per cardiology: -Patient with acute onset of left shoulder pain and weakness. -Management per primary service. Discussion w patient/family: The assessment and plan as outlined above was discussed with the patient and/or family members who expressed understanding and agreement. All questions were answered. Thank you for involving us in the care of your patient. Please call with any questions. Discussed and reviewed with . Subjective Principal diagnosis: left arm pain Interval history: Patient states she feels ok this morning. Patient states left arm pain has improved from yesterday. Denies chest pain. Patient states she is anxious to go home. Objective Vital Signs, Last 4 Hours Temp Pulse Resp BP Pulse Ox 11/20/16 11:00 97.5 F L 75 16 100/59 94 General: Conversant, No Apparent Distress HEENT: Atraumatic, Normocephaly, Mucus Membranes Moist Neck: No JVD, Normal carotid pulses Cardiac: Reg Rate and Rhythm, Normal S1 and S2, No Murmur Lungs: Normal Breath Sounds, No Wheeze, Rales, Rhonchi Neuro: Alert and responsive, No focal deficits noted Abdomen: Soft, Non-Tender Skin: No rashes noted on visualized skin Musculoskeletal: No Chest Wall Tenderness Extremities: No Clubbing, No Cyanosis, Other (Diminished pulses bilaterally, 2+ bilateral pedal edema. ) Results 11/20/16 06:55 11/20/16 06:55 Lab Results Active Medications Acetaminophen (Tylenol) 650 mg PO Q6HR PRN PRN Reason: Mild Pain (1-3) Stop: 05/20/17 10:12 Last Admin: 11/19/16 21:07 Dose: 650 mg Hydrocodone Bitart/Acetaminophen ([place] 5-325 Mg) 1 tab PO Q4HR PRN PRN Reason: Moderate Pain (4-6) Stop: 05/20/17 10:12 Aspirin (Aspirin) 81 mg PO DAILY DENG Stop: 05/21/17 09:01 Last Admin: 11/20/16 08:50 Dose: 81 mg Atorvastatin Calcium (Lipitor) 80 mg PO HS [facility] Stop: 05/20/17 21:01 Last Admin: 11/19/16 20:46 Dose: 80 mg Dextrose/Water (Dextrose 50% (Syg)) 25 ml IVP AD PRN PRN Reason: Hypoglycemia Stop: 05/20/17 10:20 Furosemide (Lasix) 40 mg PO DAILY [facility] Stop: 05/21/17 09:01 Last Admin: 11/20/16 08:49 Dose: 40 mg Glucagon (Glucagen) 1 mg IM ONCE PRN PRN Reason: Hypoglycemia Stop: 05/20/17 10:20 Glucose (Gluctose) 15 gm PO ONCE PRN PRN Reason: Hypoglycemia Stop: 05/20/17 10:20 Glucose (Gluctose) 30 gm PO ONCE PRN PRN Reason: Hypoglycemia Stop: 05/20/17 10:20 Heparin Sodium (Porcine) (Heparin) 4,000 unit IVP Q6HR PRN PRN Reason: SEE COMMENTS Stop: 05/20/17 09:57 Heparin Sodium (Porcine) (Heparin) 2,000 unit IVP Q6H PRN PRN Reason: SEE COMMENTS Stop: 05/20/17 09:57 Last Admin: 11/18/16 18:57 Dose: 2,000 unit Heparin Sodium/Dextrose (Heparin 25,000 Unit/500 Ml D5w) 25,000 unit in 500 mls @ 18.507 mls/hr IVC .Q24H DENG; 12 UNIT/KG/HR PRN Reason: Protocol Stop: 05/20/17 10:01 Last Titration: 11/20/16 11:33 Dose: Infused Dextrose (Dextrose 5%) 1,000 mls @ 100 mls/hr IVC .Q10H PRN PRN Reason: HYPOGLYCEMIA Stop: 05/20/17 10:20 Insulin Human Lispro (Humalog) 0 units SQ HS [facility] PRN Reason: Protocol Stop: 05/20/17 21:01 Last Admin: 11/19/16 20:46 Dose: 3 units Insulin Human Lispro (Humalog) 0 units SQ TIDAC DENG PRN Reason: Protocol Stop: 05/20/17 11:31 Last Admin: 11/20/16 11:36 Dose: Not Given Isosorbide Mononitrate (Imdur) 30 mg PO DAILY [facility] Stop: 05/20/17 10:31 Last Admin: 11/20/16 08:50 Dose: 30 mg Lactobacillus Acidophilus/Rhamnosus (Culturelle) 1 each PO DAILY [facility] Stop: 05/21/17 09:01 Last Admin: 11/20/16 08:49 Dose: 1 each Lidocaine HCl (Lidoderm 5% Patch) 1 each TP DAILY [facility] Stop: 05/20/17 10:31 Last Admin: 11/20/16 08:50 Dose: 1 each Lisinopril (Zestril) 20 mg PO DAILY DENG PRN Reason: Protocol Stop: 05/20/17 10:31 Last Admin: 11/20/16 08:49 Dose: 20 mg Metoprolol Tartrate (Lopressor) 50 mg PO BID [facility] Stop: 05/20/17 10:31 Last Admin: 11/20/16 08:49 Dose: 50 mg Morphine Sulfate (Morphine Sulfate) 2 mg IVP Q6H PRN PRN Reason: Severe Pain (7-10) Stop: 05/20/17 10:12 Last Admin: 11/19/16 03:32 Dose: 2 mg Naloxone HCl (Narcan) 0.4 mg IVP Q2MIN PRN PRN Reason: Opioid Reversal Stop: 05/20/17 10:12 Nitroglycerin (Nitroglycerin) 0.4 mg SL Q5MIN PRN PRN Reason: Chest Pain Stop: 05/20/17 09:08 Last Admin: 11/20/16 08:51 Dose: 0.4 mg Potassium Chloride (Potassium Chloride) 20 meq PO DAILY [facility] Stop: 05/21/17 09:01 Last Admin: 11/20/16 08:50 Dose: 20 meq Ranolazine (Ranexa) 500 mg PO BID [facility] Stop: 05/20/17 21:01 Last Admin: 11/20/16 08:50 Dose: 500 mg Ticagrelor (Brilinta) 90 mg PO BID [facility] Stop: 05/20/17 10:31 Last Admin: 11/20/16 08:50 Dose: 90 mg Laboratory Tests 11/18/16 11/18/16 11/18/16 08:28 12:19 18:08 Hgb Creatinine Magnesium Troponin I 0.19 H* 0.19 H* 0.46 H* 11/20/16 11/20/16 06:55 06:55 Hgb 10.0 L Creatinine 0.88 Magnesium 1.4 L Troponin I - Imaging and Cardiology Chest Xray: report reviewed Stress Test: report reviewed Cardiac cath: report reviewed - EKG Interpretation EKG results cardiology: other (Telemetry reviewed with average HR 80, sinus rhythm. PVCs and PACs noted.) Consult Discharge Plan - Plan Referrals: Rashard Umana CNP [Primary Care Provider] - 11/22/16 2:00 pm (please follow up as schedule...)
--- NOTE | 2016-11-20 15:16 | Discharge Summary ---
<Stevo Cowart - Last Filed: 11/20/16 15:13> Date of Encounter: 11/20/16 Time of Encounter: 14:00 - Discharge Diagnosis (1) ACS (acute coronary syndrome) Priority: Primary Status: Acute Comments: - NSTEMI. Troponins 0.19 -> 0.19 -> 0.46 - EKG in ED showed ST depression in V2 and T wave inversions in I, AVL - Recent LHC at [facility] in February 2016. - [place] cardiology recommends LHC. 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 - Cardiology discussed the case with patient and patient elected to go to [facility]. - Will transfer to [facility] for further evaluation. - Continue ASA, brilenta, BB, statin, NTG, imdur, Heparin drip. (2) Acute pain of left shoulder Priority: Secondary Status: Acute Comments: - Likely musculoskeletal given degenerative changes seen on shoulder Xray - Will control pain with lidocaine patch, patient is currently refusing oral pain medications. (3) CAD (coronary artery disease) Priority: Secondary Status: Chronic Qualifiers: Coronary Disease-Associated Artery/Lesion type: [place] artery [place] vs. transplanted heart: [place] heart Associated angina: with unspecified angina Qualified Code(s): I25.119 - Atherosclerotic heart disease of [place] coronary artery with unspecified angina pectoris (4) Hypertension Priority: Secondary Status: Chronic Qualifiers: Hypertension type: essential hypertension Qualified Code(s): I10 - Essential (primary) hypertension (5) Diabetes Priority: Secondary Status: Chronic Qualifiers: Diabetes mellitus type: type 2 Diabetes mellitus complication status: without complication Diabetes mellitus longitudinal float operator insulin use: without longitudinal float operator use Qualified Code(s): E11.9 - Type 2 diabetes mellitus without complications (6) Hypomagnesemia Priority: Secondary Status: Acute - Discharge Medications Home Medications: Aspirin 81 mg PO DAILY 09/26/16 [History] Atorvastatin Calcium 80 mg PO DAILY 09/26/16 [History] Furosemide [Lasix] 40 mg PO DAILY 09/26/16 [History] GlipiZIDE [Glipizide ER] 10 mg PO BID 09/26/16 [History] Lisinopril [Zestril] 20 mg PO DAILY 09/26/16 [History] Metoprolol [Lopressor] 50 mg PO BID 09/26/16 [History] Nitroglycerin [Nitrostat] 0.4 mg SL AD PRN 09/26/16 [History] Potassium Chloride [K-Tab ER] 20 meq PO DAILY 09/26/16 [History] Ticagrelor [Brilinta] 90 mg PO BID 09/26/16 [History] Lactobacillus Combination No.8 [Adult Probiotic] 1 cap PO DAILY 11/16/16 [ History] Multivitamin [Multivitamins] 1 tab PO DAILY 11/16/16 [History] Metformin HCl [Glucophage] 1,000 mg PO BID 11/18/16 [History] Nitroglycerin 0.2 mg TD DAILY PRN 11/18/16 [History] Ranolazine [Ranexa] 500 mg PO BID 11/18/16 [History] Heparin 2,000 unit IVP Q6H PRN vial 11/20/16 [Rx] Heparin 4,000 unit IVP Q6HR PRN vial 11/20/16 [Rx] Isosorbide MONOnitrate (24 HR) [Imdur] 30 mg PO DAILY 11/20/16 [Rx] Lidocaine Patch [Lidoderm 5% patch] 1 each TP DAILY 11/20/16 [Rx] Allergies/Adverse Reactions: Allergies No Known Allergies Allergy (Verified 10/12/16 09:57) Procedures/tests Complete & Pending: Procedures Performed prior 72 hours Category Date Time Status ECG 12 lead ECG [ECG] Routine Y 11/19/16 03:46 Completed ECG 12 lead ECG [ECG] Routine Y 11/20/16 08:58 Completed Date of admission: 11/18/16 10:12 Primary care physician: Rashard Umana CNP Consults: [place] [facility] Discharging clinician: Stevo Cowart Anticipated date of discharge: 11/20/16 - Patient Status Disposition: Transfer Critical Access Hosp Condition: Fair Functional capacity at discharge: independent ambulation Overall status at discharge: patient is not back to baseline - Discharge Instructions Follow Up With: Rashard Uamna CNP [Primary Care Provider] - 11/22/16 2:00 pm (please follow up as schedule...) Forms: ED Satisfaction Letter Hospital course: Ms. Vazquez is a 81 year old female with PMH of CAD with stenting (last cath at [place]), MA, HTN, hyperlipidemia, AAA 3cm in 2011, PVD, carotid stenosis. Patient presented with complaint of left shoulder pain and difficulty to move left arm starting one day prior. Patient was noted to have elevated troponin (0.19) with EKG in ED showed ST depression in V2 and T wave inversions in I & aVL. Patient was admitted for NSTEMI and started on heparin drip along with continuation of aspirin, Brilinta, beta penny, and statin. Patient's troponin increased to 0.46. [place] cardiology was consulted and recommended [facility] as patient had nuclear stress test on 10/03/16 showing rest images with perfusion defect in apex, apical inferior, and apical septal . Patient was unable to complete stress images at that time, and it's unclear whether perfusion defects are infarct vs ischemia due to no stress images. But after reviewing cath films from [facility], the sheet metal roofer at [place] recommends transfer to tertiary center given patient has COURT CLERK of distal LAD with heavily calcified arteries. Cardiology discussed the case with patient and patient elected to go to [facility]. Case was discussed with Dr. [place], the sheet metal roofer at [facility], and he kindly accepted the transfer. Patient will be transferred to [facility] with continuation of medical management including ASA, brilenta, BB, statin, NTG, imdur, Heparin drip. Patient is currently hemodynamically stable and denies chest pain. - Time Spent with Patient Total time spent providing and/or coordinating discharge services: Greater than 30 minutes (45 minutes) - Constitutional Vitals: Temp Pulse Resp BP Pulse Ox 97.5 F L 75 16 100/59 94 11/20/16 11:00 11/20/16 11:00 11/20/16 11:00 11/20/16 11:11/20/16 11:00 General appearance: Present: A&O X 3, pleasant, no acute distress, answers questions appropriately Exam: Gen.: Vitals noted. No acute distress. AAOx3 HEENT: PERRL/EOMI, oropharynx clear, Normocephalic, atraumatic Neck: Supple. No adenopathy. Cardiac: RRR, no murmur, +S1/S2 Pulmonary: CTA bilaterally, no wheezes, rales or rhonchi, equal chest expansion Abdomen: soft, nontender, BS noted, no guarding Back: Nontender throughout. MSK: Left shoulder tenderness to palpation, limited range of motion secondary to pain in extension, abduction, and supination. no joint swelling noted Extremities: Right medial malleolus ulcer with purulence. No erythema, warmth noted. no BLE edema, nontender calf, no cyanosis or clubbing Neuro: A&Ox3, moves all extremities, no focal deficits Psych: Appropriate mood and behavior <Son Swanson - Last Filed: 11/20/16 17:57> Date of Encounter: 11/20/16 - Discharge Diagnosis (1) Unstable angina Priority: Primary Status: Acute (2) ACS (acute coronary syndrome) Status: Acute (3) Acute pain of left shoulder Status: Acute (4) Abnormal stress test Priority: Secondary Status: Acute (5) PVD (peripheral vascular disease) Priority: Secondary Status: Chronic (6) Hypertension Status: Chronic Qualifiers: Hypertension type: essential hypertension Qualified Code(s): I10 - Essential (primary) hypertension (7) Diabetes Status: Chronic Qualifiers: Diabetes mellitus type: type 2 Diabetes mellitus complication status: with circulatory complication Diabetes mellitus complication detail: with peripheral angiopathy without gangrene Diabetes mellitus longitudinal float operator insulin use : without group home use Qualified Code(s): E11.51 - Type 2 diabetes mellitus with diabetic peripheral angiopathy without gangrene (8) Hypomagnesemia Status: Acute (9) CAD (coronary artery disease) Status: Chronic Qualifiers: Coronary Disease-Associated Artery/Lesion type: [place] artery [place] vs. transplanted heart: [place] heart Associated angina: with unspecified angina Qualified Code(s): I25.119 - Atherosclerotic heart disease of [place] coronary artery with unspecified angina pectoris Procedures/tests Complete & Pending: Procedures Performed prior 72 hours Category Date Time Status ECG 12 lead ECG [ECG] Routine Y 11/19/16 03:46 Completed ECG 12 lead ECG [ECG] Routine Y 11/20/16 08:58 Completed Date of admission: 11/18/16 10:12 Primary care physician: Rashard Umana [facility] course: Ms. Vazquez is a 81 year old female - Time Spent with Patient Total time spent providing and/or coordinating discharge services: 38min - Constitutional Vitals: Temp Pulse Resp BP Pulse Ox 98.2 F 82 16 94/61 98 11/20/16 16:17 11/20/16 16:17 11/20/16 16:17 11/20/16 16:17 11/20/16 16:17 - Attending Attestation I examined this patient and my medical decision-making was reviewed with the Resident Physician on 11/20/16. I agree with the documented findings, disposition and treatment plan as described except to the extent set forth below. Ms. Vazquez had been hospitalized for L shoulder pain and acute NSTEMI. She is to be transferred to [facility] for further evaluation at this time per recommendation of [place] cardiology. Exam Alert. Comfortable Mucus membranes moist Heart reg No wheeze Abd soft Plan D/C to [facility]. Continue heparin.
[2016-11-20 16:23] VITALS: BP 94/61
--- NOTE | 2016-11-20 18:09 | Electrocardiograph Report ---
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
== END 2016-11-20 18:10 | disposition critical access hospital (66) ==
LOC: 2ANU 08:06 → EMEROO 08:06 → SUATTDRO 10:12 → 2ANU 10:29
PROVIDERS: ADMIT Internal Medicine; ATTEND Internal Medicine

== ENCOUNTER 2017-01-15 06:45 | Inpatient (IN) ==
[2017-01-15] MEDS ORDERED: CeFAZolin Pre 2,000 MG/100 ML 2,000 MG/100 ML BAG IVPB ONE (07:17)
[2017-01-15] MEDS ORDERED: Heparin 1,000 UNITS/500 mL NS 500 ML ONE (07:48)
[2017-01-15] MEDS ORDERED: Heparin 1,000 UNITS/500 mL NS 1,000 ML ONE (07:49)
--- NOTE | 2017-01-15 07:49 | Anesthesia Evaluation PreOp ---
Date of Encounter: 01/15/17 Time of Encounter: 07:47 - Past History Planned Operation: right fem-pop Cardiac History: [place], HTN, Hyperlipidemia, Cardiac Stent, Other (extensive CAD with multiple MIs and stents. She has PVD with carotid ds and PVD. [facility] no valve issues and moderate LV dysfunction. She has been cleared by cardiology.) Pulmonary History: Former smoker (quit 1961) [employer] History: Denies Any Significant HX Other Medical History: Diabetes Type II Anesthesia History: No Prior Anesthetic Complications, Past Anesthesia (corneal transplant) : No Alcohol Use: rarely Drug use: none Medications and Allergies Aspirin 81 mg PO HS 09/26/16 [History] Atorvastatin Calcium 80 mg PO HS 09/26/16 [History] Furosemide [Lasix] 40 mg PO DAILY 09/26/16 [History] Metoprolol [Lopressor] 50 mg PO BID 09/26/16 [History] Nitroglycerin [Nitrostat] 0.4 mg SL AD PRN 09/26/16 [History] Potassium Chloride [K-Tab ER] 20 meq PO DAILY 09/26/16 [History] Ticagrelor [Brilinta] 90 mg PO BID 09/26/16 [History] Lactobacillus Combination No.8 [Adult Probiotic] 1 cap PO DAILY 11/16/16 [ History] Multivitamin [Multivitamins] 1 tab PO DAILY 11/16/16 [History] Metformin HCl [Glucophage] 1,000 mg PO BID 11/18/16 [History] Ranolazine [Ranexa] 500 mg PO BID 11/18/16 [History] Lisinopril [Zestril] 5 mg PO DAILY 01/15/17 [History] Ubidecarenone [Co Q-10] 30 mg PO DAILY 01/15/17 [History] glipiZIDE [Glipizide] 10 mg PO BID 01/15/17 [History] 3 Allergy/AdvReac Type Severity Reaction Status Date / Time No Known Allergies Allergy Verified 01/15/17 07:09 - Meds/Allergy Pre-op Review Medications Reviewed: Yes Allergies Reviewed: Yes If Beta Blockers taken, Date/Time (Last Dose taken): today at 0300 Anesthesia Results - Labs Laboratory Tests 01/11/17 01/11/17 01/11/17 11:00 11:00 11:00 Hgb 9.7 L Hct 29.7 L Plt Count 278 PT 11.5 INR 1.1 APTT 25.7 L Sodium 136 Potassium 4.7 H BUN 58 H Creatinine 1.73 H - Imaging EKG: report reviewed Anesthesia Exam Selected Entries 01/15/17 07:03 Temperature 98.2 F Pulse Rate 74 Respiratory Rate 18 Blood Pressure 120/69 O2 Sat by Pulse Oximetry 96 Weight: 72kg NPO (# of Hours): 8 Pain Scale: 0 Pain Scale Used: Numeric (1 - 10) - HEENT Pupil (Motor): EOMI Mallampati: II Teeth: Edentulous Oral Opening: Greater than 3 - [employer] LOC: Oriented [employer] Motor: Normal RUE, Normal LUE, Normal RLE, Normal LLE, Normal Face [employer] Sensory: Normal: RUE, LUE, RLE, LLE, Face - Cardiac Rhythm: Regular Murmur: None - Pulmonary Breath Sounds: bilateral Clear Respiratory Effort: Symmetrical Anesthesia Assess/Plan ASA Score: 3 Modified [place] Scale for Level of Consciousness: Cooperative, oriented, and tranquil Anesthetic Plan: General Monitoring Plan: Standard Monitors, A-Line Recovery Plan: PACU (Discussed risks of GA, need for lines and possible need for blood products. Questions ansawered and agrees to proceed.)
[2017-01-15] MEDS ORDERED: *HR* Propofol 200 MG/20 ML VIAL IVP ONE (07:52)
[2017-01-15] MEDS ORDERED: *HR* FentaNYL (PF) 100 MCG/2 ML VIAL ONE (07:52)
[2017-01-15] MEDS ORDERED: *HR* Etomidate 40 MG/20 ML VIAL IVP ONE (07:52)
[2017-01-15] MEDS ORDERED: Lidocaine -MPF 2% 2 ML VIAL ONE (07:53)
[2017-01-15] MEDS ORDERED: *HR* Rocuronium Bromide 50 MG/5 ML VIAL ONE (07:54)
--- NOTE | 2017-01-15 08:00 | History & Physical Report ---
Date of Encounter: 01/15/17 Time of Encounter: 07:50 24 Hour HP Update - Instructions Instructions: If the History and Physical is less than 30 days old and was completed prior to A.M. admission and or procedure and has NOT been updated on calendar day of procedure please complete this update prior to performing procedure. - Update Patient reports changes in Medical Condition: No Changes in examination, assessment, or condition: No Changes in Medication: No Preop tests/diagnostics Reviewed: Yes Pre-Op MRSA Screen: Negative Surgery Remains Indicated: Yes Consent for Planned Operative Procedure(s) Verified: Yes - Pre-Operative Checklist Preoperative Checklist Indicated: Yes Prophylactic Antibiotic Ordered: Yes Home Medications Include Beta Krystal: Yes Beta Krystal Taken Today (Day of Surgery): Yes Beta Krystal Taken Yesterday (Day Prior to Surgery): Yes Is VTE Prophylaxis Indicated?: Yes
[2017-01-15] MEDS ORDERED: Acetaminophen IV 1,000 MG/100 ML INFUS..BTL ONE (08:05)
[2017-01-15] MEDS ORDERED: Ketamine *HR* 500 MG/10 ML MDV ONE (08:08)
[2017-01-15] MEDS: Ringers Solution, Lactated 1,000 ML IVC SCH ×2 (08:23→11:36)
[2017-01-15] MEDS ORDERED: Ringers Solution, Lactated 1,000 ML IVC SCH (08:24)
[2017-01-15] MEDS ORDERED: *HR* Phenylephrine 10 MG/ML VIAL ONE ×2 (08:43→10:36)
[2017-01-15] MEDS ORDERED: Dexamethasone 4 MG/ML VIAL ONE (09:15)
[2017-01-15] MEDS ORDERED: Ondansetron 4 MG/2 ML VIAL ONE (09:15)
[2017-01-15] MEDS ORDERED: Ondansetron 4 MG/2 ML VIAL IVP PRN (09:27)
[2017-01-15] MEDS ORDERED: *HR* HYDROmorphone (PF) 1 MG/ML SYRINGE IVP PRN (09:27)
--- NOTE | 2017-01-15 10:43 | Anesthesia Procedures ---
Date of Encounter: 01/15/17 Time of Encounter: 08:20 Procedures: Anesthesia - Arterial Line Consent obtained: written consent Time out performed: Yes Local Anesthetic: Lidocaine 1% Amount of Anesthetic used (mls): 1 Size (Gauge): 20 Length (inches): 1 3/4 Technique Used: guide wire technique, direct puncture technique Post-Procedure: line taped into place, dry sterile dressing placed Patient tolerated procedure: well, no complications Complications: none Site: Radial R Vitals: see anesthetic record
[2017-01-15] MEDS ORDERED: *HR* Heparin 5,000 UNIT/ML VIAL ONE (10:47)
[2017-01-15] MEDS ORDERED: Neostigmine Methylsulfate 3 MG/3 ML SYRINGE ONE (12:53)
--- NOTE | 2017-01-15 13:43 | Operative Note ---
Date of procedure: 01/15/17 Pre-op diagnosis: PAD/limb threatening ischemia Post-op diagnosis: same Procedure: right femoral-tibial peroneal trunk bypass with in situ greater saphenous vein right common femoral artery endarterectomy right tibial peroneal trunk endarterectomy with bovine pericardial patch angioplasty Complications: none Anesthesia: GETA Surgeon: Chris Norton Co-Surgeon: Lito Yo Estimated blood loss (cc): 300 Specimen: none Condition: stable Disposition: PACU Procedure in Detail: History Zandra Vazquez is an 81-year-old white female with severe right lower extremity pain area and she has pulse deficits and abnormal noninvasive test. She does undergo on angiography which revealed popliteal and proximal tibial artery occlusion. 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 Intervention for the right lower extremity was delayed due to coronary artery disease. This was addressed via endovascular techniques and the patient now comes the operating room today to revascularize right lower extremity for limb salvage. Procedure After informed consent was obtained the patient was taken to the operating room. General endotracheal anesthesia was established under arterial line pressure monitoring. The right lower extremity was sterilely prepped and draped. A timeout protocol was observed. A 2 surgeon approach was utilized for this bypass due to the patient's cold morbid conditions especially her active coronary artery disease. This would allow for enhanced intraoperative complex decision-making as well as to reduce blood loss and anesthesia time. The operation was initiated at the below the knee popliteal and proximal tibial area. Dissection was carried down to reveal the greater saphenous vein which was isolated and preserved. Dissection was then carried further on into the arterial level. Dissection was made so that the popliteal vein could be mobilized and the below the knee popliteal and tibial peroneal trunk and all 3 tibial arteries were individually identified and controlled. This was a relatively normal sized artery though there was significant plaque present on palpation. Dissection was then carried proximally as the greater saphenous vein was identified and the vein was tracked up to the level of the groin through interrupted thigh incisions. Then finally the common femoral and femoral bifurcation were isolated and controlled with Vesseloops. Calcific plaque was present in the femoral artery and femoral bifurcation as well. 5000 units heparin was then administered and a 3 minute delay was observed. After this 3 minutes the greater saphenous vein was divided from its confluence to the common femoral vein. An arteriotomy was made at the anterior aspect of the distal common femoral artery. An endarterectomy was then performed of the right common femoral artery. There is a large area of plaque formation at the orifice of the superficial femoral artery as well as in the distal common femoral artery . This was removed and then the end of vein to side of artery anastomosis was performed using 6-0 Prolene suture. It was elected to perform the bypass graft for this patient using the vein in an in situ configuration. Therefore there was minimal dissection along the wall of the veins. Simultaneous to this common femoral procedure the distal below the knee popliteal and tibial peroneal trunk were opened. As expected a significant amount of plaque was present as well as plaque that was in the orifice of the peroneal and posterior tibial arteries. An endarterectomy was performed of these areas as well and backbleeding was established area a bovine pericardial patch angioplasty was then performed in order to preserve the lumen and to expedite creation of the distal anastomosis. After the patch was secured in place valvulotomes were then introduced and passed antegrade from the divided vein in the calf. A 2 and 2.5 mm valvulotome were used. Excellent pulsatile flow was achieved. With this accomplished the vein was then trimmed and an end of vein to side of the tibial peroneal trunk anastomosis was created. After appropriate backbleeding and flushing the graft was opened. Excellent pulsatile flow was achieved. The vein was then inspected for residual tributaries which were identified and isolated and then ligated. Doppler evaluation was also made of the in situ vein. Doppler signals were identified at the ankle. The wounds were irrigated and hemostasis achieved. The wounds were closed in layers using absorbable suture. Dry sterile dressings were applied. There were no intraoperative complications. The patient tolerated procedure well. The patient was extubated in the operating room and taken to the recovery room in stable condition.
--- NOTE | 2017-01-15 14:45 | Anesthesia Evaluation Post Op ---
Date of Encounter: 01/15/17 Time of Encounter: 14:43 - Vital Signs Vital Signs: Selected Entries 01/15/17 14:15 01/15/17 14:35 Temperature 97.6 F Pulse Rate 64 Respiratory Rate 16 Blood Pressure 95/48 O2 Sat by Pulse Oximetry 98 - Lungs Lungs: Clear Ascult./Percussion - Airway Airway: Non-obstructed - Cardiovascular Regular Rate - Mental Status Mental Status: Sedated - Pain Pain Scale: 0 Pain Scale used: Numeric (1 - 10) - Nausea Vomiting Nausea Vomiting: Not Present - Hydration Hydration: Ice chips (refused), Moon catheter - Discharge PostOp Status: Transfer Patient to floor
[2017-01-15] MEDS ORDERED: Naloxone 0.4 MG/ML INJ IVP PRN (15:08)
[2017-01-15] MEDS ORDERED: Acetaminophen 325 MG TABLET PO PRN (15:08)
[2017-01-15] MEDS ORDERED: *HR* Morphine 2 MG/ML SYRINGE IVP PRN (15:08)
[2017-01-15] MEDS ORDERED: *HR* HYDROcodone/Acet 5/325 mg TABLET PO PRN (15:08)
[2017-01-15] MEDS ORDERED: Nitroglycerin 0.4 MG TAB.SUBL SL PRN (15:08)
[2017-01-15] MEDS ORDERED: 0.9 % Sodium Chloride 250 ML IVC ONE ×2 (16:25→22:29)
--- NOTE | 2017-01-15 16:28 | Operative Note ---
Date of procedure: 01/15/17 Pre-op diagnosis: Peripheral vascular disease with ulceration Post-op diagnosis: same Procedure: 1. Right common femoral endarterectomy. 2. Right popliteal and tibial endarterectomy with bovine pericardial patch angioplasty. 3. Right femoral to tibioperoneal trunk artery bypass with in-situ right greater saphenous vein. Complications: None Anesthesia: ARNOLD Surgeon: Lito Yo Co-Surgeon: Chris Norton Estimated blood loss (cc): 300 Specimen: None Condition: stable Disposition: PACU Procedure in Detail: Indications: The patient is an 82 year old female with a history of coronary artery disease, diabetes, hypertension, hyperlipidemia and peripheral vascular disease. She was noted to have rest pain and nonhealing right lower extremity ulceration. Angiography revealed significant right lower extremity disease. Due to her symptoms and nonhealing ulceration, revascularization was recommended to reduce her risk of limb loss. Procedure: The patient was identified in the preoperative area. The risks, benefits, and alternatives of the procedure were discussed an all questions were answered. The patient was taken to the operating room and placed in supine position on the operating room table. After the induction of general endotracheal anesthesia, she was cleaned and draped in normal sterile fashion. A two surgeon approach was utilized for this procedure in order to minimize anesthetic time and the risks for complications due to the patients comorbid conditions. In addition, a two surgeon approach was used for intraoperative decision making. An oblique incision was made over the right groin sharply and hemostasis was obtained with electrocautery. Through a process of blunt, sharp, and electrocautery dissection, the right femoral vessels were dissected circumferentially and surrounded with vessel loops. An incision was made on the right medial calf sharply. Hemostasis was obtained with electrocautery. Through a process of blunt, sharp, and electrocautery dissection, the left below-knee popliteal artery was dissected proximally and distally and surrounded with vessel loops. Multiple skin incisions were then made along the saphenous vein. The vein was mobilized by ligating tributaries at the groin incision and at the calf incision. The vein was then divided at the saphenofemoral junction and the saphenofemoral junction was oversewn with 6- 0 Prolene. The patient received 500 units of heparin and and additional heparin throughout the procedure to maintain adequate anticoagulation. Tension was applied to the femoral vessel loops and an arteriotomy was made in the common femoral artery. Extensive stenotic plaque was noted in the common femoral artery. A dental freer was then used to perform an endartectomy on the right common and deep femoral arteries. Proximal and distal endpoints were inspected and no elevated flaps were noted. Simultaneously, the popliteal vessels were occluded and a longitudinal arteriotomy was made in the popliteal artery. Due to the extent of the occlusion, the proximal tibioperoneal trunk, and anterior tibial arteries were dissected. The tibial vessels were surrounded with vessel loops and the arteriotomy was extended into the origin of the tibioperoneal trunk until the vessel lumen appear patent. Using a dental freer, an endarterectomy was performed on the below knee popliteal artery and tibioperoneal trunk artery. A bovine pericardial patch was cut to fit the defect and sutured in place with a running 6-0 prolene. The saphenous vein was then cut to fit the femoral arterial defect and sutured in place with a running 6-0 Prolene. Flow was then restored in the femoral vessels. A 2.0mm and then a 2.5mm valvulotome was then inserted into the distal end of the saphenous vein and advanced to the anastamosis. The valves were lysed and then pulsatile flow was noted through the vein. The vein was clamped with an a traumatic bulldog. The patch over the popliteal artery and tibioperoneal trunk artery was incised longitudinally. The distal end of the insitu saphenous vein graft was sutured in place with a running 6-0 Prolene. Heparinized saline was infused into the lumen. The anastamosis was completed and flow was restored. Multiple saphenous vein tirbutaries were identified and ligated along the saphenous vein graft with use of the doppler. Polyphasic signals were noted distal to the distal anastomosis as well as at the ankle. Wounds were irrigated with antibiotic-containing saline. Meticulous hemostasis was obtained throughout the wound with electrocautery. Wounds were reapproximated with layers of 2-0 and 3-0 Vicryl. Skin was reapproximated with 4-0 vicryl. Sterile dressings were applied. The patient was extubated and taken to recovery room in stable condition.
[2017-01-15] MEDS ORDERED: 0.9 % Sodium Chloride 1,000 ML ONE (16:29)
[2017-01-15] MEDS: ceFAZolin 2,000 MG in D5% in Water 100 ML IVPB SCH ×2 (16:42→23:36)
[2017-01-15] MEDS: 0.9 % Sodium Chloride 1,000 ML IVC SCH (16:43)
[2017-01-15] MEDS: Ranolazine 500 MG TAB.ER.12H PO SCH (20:47)
[2017-01-15] MEDS: *HR* GlipiZIDE 5 MG TABLET PO SCH (20:47)
[2017-01-15] MEDS: *HR* Metformin 500 MG TABLET PO SCH (20:47)
[2017-01-15] MEDS: *HR* Ticagrelor 90 MG TABLET PO SCH (20:48)
[2017-01-15] MEDS: Aspirin 81 MG TAB.CHEW PO SCH (20:48)
[2017-01-16] MEDS: 0.9 % Sodium Chloride 1,000 ML IVC SCH (05:08)
[2017-01-16] MEDS: *HR* Morphine 2 MG/ML SYRINGE IVP PRN ×3 (05:25→22:45)
[2017-01-16 06:45] LABS: BUN/Creatinine Ratio 41 (6-26); Blood Urea Nitrogen 37 mg/dL (7-20); Carbon Dioxide 20 mEq/L (19-29); Chloride 107 mEq/L (98-109); Glucose 120 mg/dL (70-99); Osmolality,Calculated 292 (280-300); Sodium 136 mEq/L (136-145); eGFR For African Americans > 60 (> 60); eGFR For Non-African Americans 59 (> 60)
[2017-01-16 06:53] LABS: Basophils % 0.1 %; Hematocrit 19.7 % (35.3-44.9); Hemoglobin 6.1 g/dL (11.5-15.4); Immature Granulocytes % 0.5 % (0-4); Lymphocytes # 1.7 K/mcL (0.6-4.6); Lymphocytes % 20.3 %; Mean Corpuscular Hemoglobin 31.3 pg (28.0-33.3); Mean Platelet Volume 10.2 fL (9.4-12.4); Monocytes % 11.5 %; Neutrophils # 5.6 K/mcL (1.6-8.9); Platelet Count 270 K/mcL (140-400); Red Blood Count 1.95 M/mcL (3.82-4.97); Red Cell Distribution Width 14.3 % (11.5-14.5); Segmented Neutrophils % 67.6 %
[2017-01-16] MEDS: ceFAZolin 2,000 MG in D5% in Water 100 ML IVPB SCH (08:02)
[2017-01-16] MEDS: Ranolazine 500 MG TAB.ER.12H PO SCH ×2 (08:33→20:29)
[2017-01-16] MEDS: Multivit/Ca/Min/Fe/FA 1 TAB TABLET PO SCH (08:33)
[2017-01-16] MEDS: *HR* GlipiZIDE 5 MG TABLET PO SCH ×2 (08:34→20:29)
[2017-01-16] MEDS: *HR* Metformin 500 MG TABLET PO SCH ×2 (08:34→20:29)
[2017-01-16] MEDS: Lactobacillus 1 EACH CAP.SPRINK PO SCH (08:34)
[2017-01-16] MEDS: Furosemide 40 MG TABLET PO SCH (08:34)
[2017-01-16] MEDS: *HR* Ticagrelor 90 MG TABLET PO SCH ×2 (08:34→20:29)
[2017-01-16] MEDS ORDERED: UBIDECARENONE 30 MG PO SCH (09:00)
[2017-01-16] MEDS ORDERED: 0.9 % Sodium Chloride 250 ML ONE (10:21)
[2017-01-16] MEDS: Ondansetron 4 MG/2 ML VIAL IVP PRN (10:39)
[2017-01-16] MEDS ORDERED: Furosemide 20 MG/2 ML VIAL IVP ONE ×2 (11:53→15:14)
[2017-01-16 17:36] LABS: Hemoglobin 8.7 g/dL (11.5-15.4)
[2017-01-16 17:50] LABS: Calcium 8.2 mg/dL (8.6-10.8)
[2017-01-16] MEDS: Aspirin 81 MG TAB.CHEW PO SCH (20:29)
[2017-01-17 06:34] LABS: Basophils % 0.2 %; Eosinophils # 0.1 K/mcL (0.0-0.6); Eosinophils % 0.6 %; Hematocrit 25.2 % (35.3-44.9); Hemoglobin 8.4 g/dL (11.5-15.4); Immature Granulocytes % 0.3 % (0-4); Lymphocytes # 3.3 K/mcL (0.6-4.6); Lymphocytes % 34.2 %; Mean Corpuscular HGB Conc 33.3 g/dL (31.6-35.5); Mean Corpuscular Hemoglobin 31.3 pg (28.0-33.3); Mean Platelet Volume 9.8 fL (9.4-12.4); Monocytes # 1.2 K/mcL (0.0-1.3); Monocytes % 12.1 %; Neutrophils # 5.1 K/mcL (1.6-8.9); Platelet Count 209 K/mcL (140-400); Red Blood Count 2.68 M/mcL (3.82-4.97); Red Cell Distribution Width 16.3 % (11.5-14.5); Segmented Neutrophils % 52.6 %
[2017-01-17 06:42] LABS: BUN/Creatinine Ratio 34 (6-26); Blood Urea Nitrogen 30 mg/dL (7-20); Calcium 8.3 mg/dL (8.6-10.8); Carbon Dioxide 25 mEq/L (19-29); Chloride 102 mEq/L (98-109); Glucose 182 mg/dL (70-99); Osmolality,Calculated 293 (280-300); Potassium 4.1 mEq/L (3.5-4.5); Sodium 136 mEq/L (136-145); eGFR For African Americans > 60 (> 60); eGFR For Non-African Americans > 60 (> 60)
--- NOTE | 2017-01-17 08:20 | Vascular/[facility] Progress Note ---
Date of Encounter: 01/16/17 Time of Encounter: 08:18 - Assessment and plan (1) Anemia Current Visit: Yes Status: Acute Acute on chronic anemia. Associated with the blood loss and dilution following surgery. Patient will receive 2 units of blood today. Qualifiers: Anemia type: other cause Other causes of anemia: acute posthemorrhagic Qualified Code(s): D62 - Acute posthemorrhagic anemia (2) PVD (peripheral vascular disease) Current Visit: Yes Status: Chronic Successful right lower extremity femoral tibial in situ saphenous vein bypass graft. Excellent perfusion of right foot. - Subjective Interval history: Patient is postop day 1 following right femoral tibial in situ saphenous vein bypass graft. The patient had an uneventful night. She was found to have significant anemia this morning with a hemoglobin of 5.6.1. She will be transfused 2 units of blood today. - Physical Examination General: Present: Conversant, No Apparent Distress HEENT: Present: Atraumatic Neck: Absent: JVD Cardiac: Present: Reg Rate and Rhythm Lungs: Present: Normal Breath Sounds Neuro: Present: Alert and responsive, No focal deficits noted Vascular: Present: Surgical incisions (Surgical dressings are dry and intact.), Other (Right foot is warm and pink. It demonstrates hyperperfusion following successful bypass grafting. The patient has excellent Doppler signals at all locations at the ankle and between the first and second toes.) Abdomen: Present: Soft, Non-tender - VTE Documentation of Mechanical Device: Intermittent pneumatic compression device Results 01/17/17 06:22 01/17/17 06:22 Lab Results, Last 24 hours 01/16/17 01/16/17 01/17/17 16:58 16:58 06:22 WBC 9.6 Hgb 8.7 L D 8.4 L Hct 26.0 L 25.2 L Plt Count 209 Sodium 135 L Potassium 5.0 H Chloride 102 Carbon Dioxide 21 BUN 37 H Creatinine 1.12 H Glucose 252 H Calcium 8.2 L 01/17/17 06:22 WBC Hgb Hct Plt Count Sodium 136 Potassium 4.1 Chloride 102 Carbon Dioxide 25 BUN 30 H Creatinine 0.88 Glucose 182 H Calcium 8.3 L Consult Discharge Plan - Plan Referrals: Rashard Umana CNP [Primary Care Provider] - 01/21/17 10:00 am () Chris Norton MD [Partnered Physician] - 01/28/17 9:00 am (This appointment is in [place])
--- NOTE | 2017-01-17 08:24 | Vascular/[facility] Progress Note ---
Date of Encounter: 01/17/17 Time of Encounter: 08:22 - Assessment and plan (1) Anemia Current Visit: Yes Status: Acute Acute on chronic anemia. Associated with the blood loss and dilution following surgery. Patient will received 2 units of blood yesterday Qualifiers: Anemia type: other cause Other causes of anemia: acute posthemorrhagic Qualified Code(s): D62 - Acute posthemorrhagic anemia (2) PVD (peripheral vascular disease) Current Visit: Yes Status: Chronic Successful right lower extremity femoral tibial in situ saphenous vein bypass graft. Excellent perfusion of right foot. Awaiting evaluation from rehabilitative services. Anticipate patient will need either home therapy or short-term inpatient rehabilitative services. Patient is medically ready for discharge later today. - Subjective Interval history: Patient is postop day 2 following right femoral tibial in situ saphenous vein bypass graft. The patient had an uneventful night. Patient has responded appropriately to 2 unit blood transfusion. No signs of ongoing bleeding. - Physical Examination General: Present: Conversant, No Apparent Distress HEENT: Present: Atraumatic Vascular: Present: Surgical incisions (Surgical incisions are clean and dry), Other (Right foot remains warm and pink. Excellent Doppler signals present throughout left ankle and forefoot.) - VTE Documentation of Mechanical Device: Intermittent pneumatic compression device Results 01/17/17 06:22 01/17/17 06:22 Lab Results, Last 24 hours 01/16/17 01/16/17 01/17/17 16:58 16:58 06:22 WBC 9.6 Hgb 8.7 L D 8.4 L Hct 26.0 L 25.2 L Plt Count 209 Sodium 135 L Potassium 5.0 H Chloride 102 Carbon Dioxide 21 BUN 37 H Creatinine 1.12 H Glucose 252 H Calcium 8.2 L 01/17/17 06:22 WBC Hgb Hct Plt Count Sodium 136 Potassium 4.1 Chloride 102 Carbon Dioxide 25 BUN 30 H Creatinine 0.88 Glucose 182 H Calcium 8.3 L Consult Discharge Plan - Plan Referrals: Rashard Umana CNP [Primary Care Provider] - 01/21/17 10:00 am () Chris Norton MD [Partnered Physician] - 01/28/17 9:00 am (This appointment is in [place])
[2017-01-17] MEDS: Ondansetron 4 MG/2 ML VIAL IVP PRN (08:25)
[2017-01-17] MEDS: Ranolazine 500 MG TAB.ER.12H PO SCH ×2 (09:52→22:34)
[2017-01-17] MEDS: Furosemide 40 MG TABLET PO SCH (09:52)
[2017-01-17] MEDS: *HR* Ticagrelor 90 MG TABLET PO SCH ×2 (09:53→22:35)
[2017-01-17] MEDS: *HR* Metformin 500 MG TABLET PO SCH ×2 (09:53→22:35)
[2017-01-17] MEDS: Lactobacillus 1 EACH CAP.SPRINK PO SCH (09:54)
[2017-01-17] MEDS: Multivit/Ca/Min/Fe/FA 1 TAB TABLET PO SCH (09:54)
[2017-01-17] MEDS: *HR* GlipiZIDE 5 MG TABLET PO SCH ×2 (09:55→22:35)
[2017-01-17] MEDS ORDERED: 0.9 % Sodium Chloride 250 ML IVC ONE (15:17)
[2017-01-17] MEDS ORDERED: 0.9 % Sodium Chloride 250 ML ONE (15:18)
[2017-01-17] MEDS ORDERED: 0.9 % Sodium Chloride 1,000 ML ONE (15:18)
[2017-01-17] MEDS: 0.9 % Sodium Chloride 1,000 ML IVC SCH (16:50)
[2017-01-17] MEDS: Aspirin 81 MG TAB.CHEW PO SCH (22:35)
[2017-01-18] MEDS: *HR* Morphine 2 MG/ML SYRINGE IVP PRN (01:51)
[2017-01-18] MEDS: Lactobacillus 1 EACH CAP.SPRINK PO SCH (08:23)
[2017-01-18] MEDS: *HR* GlipiZIDE 5 MG TABLET PO SCH (08:23)
[2017-01-18] MEDS: *HR* Ticagrelor 90 MG TABLET PO SCH (08:23)
[2017-01-18] MEDS: *HR* Metformin 500 MG TABLET PO SCH (08:23)
[2017-01-18] MEDS: Multivit/Ca/Min/Fe/FA 1 TAB TABLET PO SCH (08:23)
[2017-01-18] MEDS: Ranolazine 500 MG TAB.ER.12H PO SCH (08:23)
[2017-01-18] MEDS: Furosemide 40 MG TABLET PO SCH (08:23)
--- NOTE | 2017-01-18 10:38 | Discharge Summary ---
Date of Encounter: 01/18/17 Time of Encounter: 08:00 - Discharge Diagnosis (1) Anemia Priority: Secondary Status: Chronic Qualifiers: Anemia type: other cause Other causes of anemia: acute posthemorrhagic Qualified Code(s): D62 - Acute posthemorrhagic anemia (2) PVD (peripheral vascular disease) Priority: Primary Status: Chronic Comments: PAD with ischemic rest pain and nonhealing foot and ankle ulcers. - Discharge Medications Prescriptions: Metoprolol [Lopressor] 25 mg PO BID #60 tablet Home Medications: Aspirin 81 mg PO HS 09/26/16 [History] Atorvastatin Calcium 80 mg PO HS 09/26/16 [History] Furosemide [Lasix] 40 mg PO DAILY 09/26/16 [History] Nitroglycerin [Nitrostat] 0.4 mg SL AD PRN 09/26/16 [History] Potassium Chloride [K-Tab ER] 20 meq PO DAILY 09/26/16 [History] Ticagrelor [Brilinta] 90 mg PO BID 09/26/16 [History] Lactobacillus Combination No.8 [Adult Probiotic] 1 cap PO DAILY 11/16/16 [ History] Multivitamin [Multivitamins] 1 tab PO DAILY 11/16/16 [History] Metformin HCl [Glucophage] 1,000 mg PO BID 11/18/16 [History] Ranolazine [Ranexa] 500 mg PO BID 11/18/16 [History] Lisinopril [Zestril] 5 mg PO DAILY 01/15/17 [History] Ubidecarenone [Co Q-10] 30 mg PO DAILY 01/15/17 [History] glipiZIDE [Glipizide] 10 mg PO BID 01/15/17 [History] Metoprolol [Lopressor] 25 mg PO BID #60 tablet 01/18/17 [Rx] Allergies/Adverse Reactions: 3 Allergy/AdvReac Type Severity Reaction Status Date / Time No Known Allergies Allergy Verified 01/15/17 07:09 Procedures/tests Complete & Pending: Procedures Performed prior 72 hours Category Date Time Status ECG 12 lead ECG [ECG] Stat Y 01/17/17 14:34 Completed Date of admission: 01/15/17 14:35 Primary care physician: Rashard Umana CNP Consults: 01/15/17 15:38 Consult to Physical Therapy [CONS] Routine Comment: Evaluate, develop and implement POC Reason for Consult: discharge planning Consult to Patient Attendant [CONS] Routine Reason for SW Consult: discharge planning OT [Consult to Occupational Therapy] [CONS] Routine Comment: Evaluate, develop and implement POC Reason for Consult: discharge planning Procedure(s) Performed: Right lower extremity bypass graft with right femoral to tibial peroneal trunk in situ saphenous vein bypass. Discharging clinician: Chris Norton Anticipated date of discharge: 01/18/17 - Patient Status Disposition: Transfer SNF Condition: Fair Functional capacity at discharge: uses cane/walker Overall status at discharge: patient is progressing back to baseline - Discharge Instructions Follow Up With: Rashard Umana CNP [Primary Care Provider] - (Patient is going to [facility], no PCP appointment needed) Chris Norton MD [Partnered Physician] - 01/28/17 9:00 am (This appointment is in [place]) Additional Instructions: Keep right lower extremity surgical incisions dry for a total of 5 days following surgery. Patient is to resume her usual home medications with the exception that the metoprolol dose has been reduced to 25 mg twice a day instead of 50 mg twice a day. When patient is sitting the right lower extremity should be elevated to reduce postoperative edema. - Diet and Activity Activity: as per physical therapy Diet: advance to your usual diet - Hospital Course Hospital course: Ms. Vazquez is a 82 year old female Severe right lower extremity ischemia. She had abnormal physical exam and noninvasive testing. She went on to have angiography which demonstrated popliteal and proximal tibial artery disease. She has known significant coronary disease and required coronary intervention prior to bypass grafting. The patient then underwent a right femoral to tibial peroneal trunk bypass graft with endarterectomy of the common femoral artery and the tibial peroneal trunk. An in situ saphenous vein bypass was utilized for her reconstruction. Post procedure the patient was noted to have anemia and required transfusion. The patient has chronic anemia so this was an acute on chronic process and she responded to 2 units of blood. Evaluation by rehabilitative therapy indicated should benefit from inpatient services and so therefore upon discharge patient will be transferred to a rehabilitation center. - Time Spent with Patient Total time spent providing and/or coordinating discharge services: Exam Vital Signs, Last 4 Hours Temp Pulse Resp BP Pulse Ox 01/18/17 08:25 88 01/18/17 07:21 98.5 F 89 18 95/70 95 General: Present: Conversant, No Apparent Distress HEENT: Present: Atraumatic Cardiac: Present: Reg Rate and Rhythm, Normal S1 and S2 Lungs: Present: Normal Breath Sounds Neuro: Present: Alert and responsive Abdomen: Present: Soft Vascular: Present: Normal capillary refill, Other (Doppler signals 3 at right ankle. Right foot is warm and pink. Patient demonstrates findings of hyperperfusion following successful reconstruction.) Skin: Present: Wound/ulcer(s) (Ulcers on right pretibial and medial malleolar areas are dry and noninfected.) - VTE Documentation of Mechanical Device: Graduated compression elastic hosiery
[2017-01-18] MEDS: 0.9 % Sodium Chloride 1,000 ML IVC SCH (13:08)
[2017-01-18 15:13] VITALS: BP 98/67
--- NOTE | 2017-01-18 16:53 | Physician Discharge Referral ---
[facility] Referral Info Transfer To: [facility] Provider in Charge: Dr Norton Provider in Charge after Transfer: PCP Institutional Level of Care: Skilled - Diagnosis (1) Anemia Priority: Secondary Status: Chronic (2) PVD (peripheral vascular disease) Priority: Primary Status: Chronic Prognosis: Fair Aware of Diagnosis: Patient, Family Aware of Prognosis: Patient, Family - Transfer Medications Prescriptions: Metoprolol [Lopressor] 25 mg PO BID #60 tablet Home Medications: Aspirin 81 mg PO HS 09/26/16 [History] Atorvastatin Calcium 80 mg PO HS 09/26/16 [History] Furosemide [Lasix] 40 mg PO DAILY 09/26/16 [History] Nitroglycerin [Nitrostat] 0.4 mg SL AD PRN 09/26/16 [History] Potassium Chloride [K-Tab ER] 20 meq PO DAILY 09/26/16 [History] Ticagrelor [Brilinta] 90 mg PO BID 09/26/16 [History] Lactobacillus Combination No.8 [Adult Probiotic] 1 cap PO DAILY 11/16/16 [ History] Multivitamin [Multivitamins] 1 tab PO DAILY 11/16/16 [History] Metformin HCl [Glucophage] 1,000 mg PO BID 11/18/16 [History] Ranolazine [Ranexa] 500 mg PO BID 11/18/16 [History] Lisinopril [Zestril] 5 mg PO DAILY 01/15/17 [History] Ubidecarenone [Co Q-10] 30 mg PO DAILY 01/15/17 [History] glipiZIDE [Glipizide] 10 mg PO BID 01/15/17 [History] Metoprolol [Lopressor] 25 mg PO BID #60 tablet 01/18/17 [Rx] Allergies/Adverse Reactions: 3 Allergy/AdvReac Type Severity Reaction Status Date / Time No Known Allergies Allergy Verified 01/15/17 07:09 - Respiratory Orders Smoking Cessation: Smoking cessation has been advised. For more information, call the [place] Tobacco Quit Line at 7-369-JTCQ-NOW. CERTIFICATION: I certify that the transfer of the above named patient to an Extended Care Facility is necessary for the continuing treatment of the diagnosis listed. The above information is true and accurate reflection of patient's current condition. Confidential - Redisclosure prohibited without a patient's written consent.
--- NOTE | 2017-01-21 08:35 | Electrocardiograph Report ---
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
--- NOTE | 2017-01-21 08:36 | Electrocardiograph Report ---
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
== END 2017-01-18 17:34 | DRG 253 ==
LOC: SAMDAY 06:45 → 2NNU 14:35
PROVIDERS: ADMIT Surgery Vascular Surgery; ATTEND Surgery Vascular Surgery